=== PATIENT | female | born 1940 | race Caucasian/White ===

== ENCOUNTER 2022-02-17 14:08 | Emergency (ER) | payer MEDICARE, OTHER, SELFPAY ==
[2022-02-17] VITALS (8 sets, daily range): BP systolic 154–179; BP diastolic 69–123; PULSE 65–67; RESP 16; O2SAT 96–98; BMI 29.9
--- NOTE | 2022-02-17 14:52 | DI.CT.S_ITS ---
PROCEDURE: CT HEAD/BRAIN WO CON INDICATIONS: prior bleed TECHNIQUE: Noncontrast 4.5 mm thick angled axial sections acquired from the foramen magnum to the vertex, with coronal and sagittal reformats. For radiation dose reduction, the following was used: automated exposure control, adjustment of mA and/or kV according to patient size. COMPARISON: None. FINDINGS: Image quality: Excellent. CSF spaces: Basal cisterns are patent. No extra-axial fluid collections. Ventricles are normal in size and shape. Brain: No midline shift. No intracranial mass is identified. There is subtle density adjacent to the left anterior horn, (2/14). No area of hypodensity in a large vascular distribution to suggest acute infarction. Periventricular hypodensity consistent with chronic microvascular ischemic change. Age-related parenchymal loss. Skull and face: Calvarium and visualized facial bones are intact, without suspicious lesions. Left globe implant. Sinuses: Visualized sinuses and mastoids are clear. IMPRESSION: 1. Subtle density adjacent to the anterior horn of the left lateral ventricle. This could be a site of prior hemorrhage, asymmetric periventricular hypodensity related to chronic microvascular ischemic disease, or artifact. The level of density speaks against acute hemorrhage. Comparison with prior head CT imaging would be helpful when available. 2. Chronic microvascular ischemic disease. Dictated by: Robe Simon M.D. on 02/17/2022 at 15:38 Approved by: Robe Simon M.D. on 02/17/2022 at 15:44
[2022-02-17 15:15] LABS: Add Manual Diff / Slide Review NO; Basophils Absolute Auto 0 /uL (0-100); Basophils Percent Auto 1.2 % (0-2); Eosinophils Absolute Auto 0 /uL (0-450); Eosinophils Percent Auto 0.6 % (2-4); Hematocrit 26.9 % (36-46); Hemoglobin 9.3 g/dL (12.0-16.0); Lymphocytes Absolute Auto 1300 /uL (1100-4500); Lymphocytes Percent Auto 35.1 % (25-40); Mean Corpuscular HGB Conc 34.5 % (30-36); Mean Corpuscular Hemoglobin 33.4 PG (26-34); Mean Corpuscular Volume 96.9 fL (80-100); Monocytes Absolute Auto 900 /uL (0-900); Monocytes Percent Auto 23.6 % (3-14); Neutrophils Absolute Auto 1500 /uL (1500-7000); Neutrophils Percent Auto 39.5 % (50-75); Platelet Count 160 X10^3/uL (150-400); Red Blood Cell Count 2.78 X10^6/uL (4.0-5.2); Red Cell Distribution Width 16.2 % (11.6-14.8); White Blood Cell Count 3.7 X10^3/uL (4.5-11.0)
[2022-02-17 15:38] LABS: Alanine Aminotransferase 61 IU/L (<35); Albumin Globulin Ratio 1.1 (1.0-2.8); Alkaline Phosphatase 206 U/L (38-126); Aspartate Aminotransferase 46 IU/L (14-36); BUN Creatinine Ratio 17.8 (6-22); Bilirubin Total 0.5 mg/dL (0.2-1.3); Blood Urea Nitrogen 21 mg/dL (7-17); Calcium 9.7 mg/dL (8.4-10.2); Carbon Dioxide 26 mmol/L (22-32); Chloride 100 mmol/L (98-107); Creatine Kinase 38 U/L (30-135); Estimated Glomerular Filt Rate 46 mL/min (>60); Globulin 3.5 g/dL (1.7-4.1); Glucose 97 mg/dL (80-110); HEMOLYSIS < 15 (0-50); Lactate (Lactic Acid) 0.9 mmol/L (0.7-2.1); Potassium 4.2 mmol/L (3.4-5.1); Sodium 135 mmol/L (137-145); Total Protein 7.5 g/dL (6.3-8.2)
[2022-02-17 15:49] LABS: Troponin I < 0.012 ng/mL (0.01-0.034)
--- NOTE | 2022-02-17 17:35 | ED.RECABL ---
HPI - Recheck/Abnormal Lab/Rx General Chief Complaint: Recheck/Abnormal Lab/Rx Stated Complaint: unstable,low platelet count Time Seen by Provider: 02/17/22 14:26 Source: patient Mode of arrival: Ambulatory History of Present Illness HPI narrative: Patient is an 81-year-old female currently being treated for lung cancer she was previously getting chemotherapy however patient and son report that she became quite anemic and that her platelets dropped she unfortunately fell and hit her head and had a small intracranial hemorrhage. At that time she stayed in the hospital for about 1 week in [place] she was released and the son brought her here. They have been trying to get her into rehab but unfortunately rehab facilities are not accepting her because of her cancer diagnosis. Son states that she has fallen a few times this week. She fell yesterday in the shower and today she felt her legs get weak and he caught her. She is not really fallen or hit her head recently. She has not had any fever chills. No significant shortness of breath. Sinus trying to get her set up with outpatient physicians here locally. Her chemotherapy has been held due to her low blood counts Related Data Allergies Allergy/AdvReac Type Severity Reaction Status Date / Time No Known Drug Allergies Allergy Verified 02/17/22 14:22 Review of Systems Review of Systems Narrative: GENERAL: + frequent falls, fatigue Denies chills, fatigue, malaise, fever, sweats, travel HEENT: Denies sinus pain, ear pain, sore throat, difficulty swallowing, neck pain RESPIRATORY: Denies dyspnea, cough, wheezing, hemoptysis, sputum. CARDIOVASCULAR: Denies chest pain, palpitations, orthopnea, edema GASTROINTESTINAL: Denies nausea, vomiting, abdominal pain, diarrhea, constipation, melena. : Denies dysuria, frequency, incontinence, hematuria, urinary retention, flank pain. MUSCULOSKELETAL: Denies weakness, joint pain, or bony pain SKIN: No rash, no erythema, no pruritus NEUROLOGIC: Denies weakness, dizziness, headache, numbness, change in speech, confusion PSYCHIATRIC: No concerning psychosocial issues. 12 point review of systems is negative except for those stated above and HPI Patient History Social History Smoking Status: Former smoker Smoking Status: Former smoker Substance Use Type: does not use Exam Initial Vital Signs Initial Vital Signs: Vital Signs Pulse Rate 67 02/17/22 14:16 Respiratory Rate 16 02/17/22 14:16 Blood Pressure 179/123 H 02/17/22 14:16 Pulse Oximetry 98 02/17/22 14:16 Oxygen Delivery Method 02/17/22 14:16 GENERAL: Alert 81-year-old female appears slightly pale HEENT: Head atraumatic,EOMI, pupils reactive, face symmetric, moist mucous membranes CARDIOVASCULAR: Regular rate and rhythm without murmurs, rubs or gallops. RESPIRATORY: Breath sounds equal bilaterally, no wheezes rales or rhonchi. ABDOMEN: Soft, nontender. Normoactive bowel sounds all 4 quadrants. No guarding or rebound. EXTREMITIES: Normal range of motion, no clubbing or edema. Neurovascularly intact NEUROLOGICAL: Alert and oriented x4.Normal gait and speech. Cranial nerves II through XII grossly intact. Good [id number], good [id number], strength equal bilaterally, no dysarthria or aphasia, sensation in tact to soft touch bilaterally, no visual changes, no facial droop SKIN: Warm, dry, no laceration, no petechiae, no rashes or lesions. Course Orders Ordered: ED Orders 02/17/22 14:32 CBC Auto Diff [Complete Blood Count AUTO DIFF] Stat CMP [Comprehensive Metabolic Panel] Stat Lactate (Lactic Acid) Stat Procalcitonin Stat Troponin & CK Cardiac Panel Stat Type and Screen Stat 02/17/22 14:52 CT head/brain wo con Stat EKG-12 Lead Stat 02/17/22 17:44 Consult to [facility] - [employer] Developer Stat 02/17/22 18:10 Consult to Home Health Stat Vital Signs Vital signs: Vital Signs - 8 hr 02/17/22 14:16 Pulse Rate 67 Respiratory Rate 16 Blood Pressure 179/123 H Pulse Oximetry 98 Oxygen Delivery Method Room Air MDM - Recheck/Abnormal Lab/Rx Lab Data Result diagrams: 02/17/22 14:32 02/17/22 14:32 Labs: Lab Results 02/17/22 02/17/22 02/17/22 Range/Units 14:32 14:32 14:32 WBC 3.7 L (4.5-11.0) X10^3/uL RBC 2.78 L (4.0-5.2) X10^6/uL Hgb 9.3 L (12.0-16.0) g/dL Hct 26.9 L (36-46) % MCV 96.9 (80-100) fL MCH 33.4 (26-34) PG MCHC 34.5 (30-36) % RDW 16.2 H (11.6-14.8) % Plt Count 160 (150-400) X10^3/uL Neut % (Auto) 39.5 L (50-75) % Lymph % (Auto) 35.1 (25-40) % [place] % (Auto) 23.6 H (3-14) % Eos % (Auto) 0.6 L (2-4) % Baso % (Auto) 1.2 (0-2) % Neut # (Auto) 1500 (4227-4932) /uL Lymph # (Auto) 1300 (1579-1423) /uL [place] # (Auto) 900 (0-900) /uL Eos # (Auto) 0 (0-450) /uL Baso # (Auto) 0 (0-100) /uL Sodium 135 L (137-145) mmol/L Potassium 4.2 (3.4-5.1) mmol/L Chloride 100 (98-107) mmol/L Carbon Dioxide 26 (22-32) mmol/L BUN 21 H (7-17) mg/dL Creatinine 1.18 H (0.52-1.04) mg/dL Estimated GFR 46 L (>60) mL/min BUN/Creatinine Ratio 17.8 (6-22) Glucose 97 (80-110) mg/dL Lactate 0.9 (0.7-2.1) mmol/L Calcium 9.7 (8.4-10.2) mg/dL Total Bilirubin 0.5 (0.2-1.3) mg/dL AST 46 H (14-36) IU/L ALT 61 H (<35) IU/L Alkaline Phosphatase 206 H (38-126) U/L Total Creatine Kinase 38 (30-135) U/L CK-MB (CK-2) TNP CK-MB (CK-2) Rel Index TNP Troponin I < 0.012 (0.01-0.034) ng/mL Total Protein 7.5 (6.3-8.2) g/dL Albumin 4.0 (3.5-5.0) g/dL Globulin 3.5 (1.7-4.1) g/dL Albumin/Globulin Ratio 1.1 (1.0-2.8) Procalcitonin (<0.5) ng/mL Blood Type Antibody Screen 02/17/22 02/17/22 Range/Units 14:32 14:32 WBC (4.5-11.0) X10^3/uL RBC (4.0-5.2) X10^6/uL Hgb (12.0-16.0) g/dL Hct (36-46) % MCV (80-100) fL MCH (26-34) PG MCHC (30-36) % RDW (11.6-14.8) % Plt Count (150-400) X10^3/uL Neut % (Auto) (50-75) % Lymph % (Auto) (25-40) % [place] % (Auto) (3-14) % Eos % (Auto) (2-4) % Baso % (Auto) (0-2) % Neut # (Auto) (4761-1107) /uL Lymph # (Auto) (5482-9815) /uL [place] # (Auto) (0-900) /uL Eos # (Auto) (0-450) /uL Baso # (Auto) (0-100) /uL Sodium (137-145) mmol/L Potassium (3.4-5.1) mmol/L Chloride (98-107) mmol/L Carbon Dioxide (22-32) mmol/L BUN (7-17) mg/dL Creatinine (0.52-1.04) mg/dL Estimated GFR (>60) mL/min BUN/Creatinine Ratio (6-22) Glucose (80-110) mg/dL Lactate (0.7-2.1) mmol/L Calcium (8.4-10.2) mg/dL Total Bilirubin (0.2-1.3) mg/dL AST (14-36) IU/L ALT (<35) IU/L Alkaline Phosphatase (38-126) U/L Total Creatine Kinase (30-135) U/L CK-MB (CK-2) CK-MB (CK-2) Rel Index Troponin I (0.01-0.034) ng/mL Total Protein (6.3-8.2) g/dL Albumin (3.5-5.0) g/dL Globulin (1.7-4.1) g/dL Albumin/Globulin Ratio (1.0-2.8) Procalcitonin 0.10 (<0.5) ng/mL Blood Type A Positive Antibody Screen Negative Imaging Data CT scan - head: Radiologist's Impression: [place], [place] [address] CT Scan Report Signed Patient: Ashanti Ontiveros MR#: [id number] : 1940 Acct:[id number] Age/Sex: 81 / F Date of Service: 02/17/22 Loc: ED Accession Number: [id number] ?? Procedure: CT head/brain wo con Ordering Provider: Radha Peacock D.O. PROCEDURE:? CT HEAD/BRAIN WO CON ? INDICATIONS:? prior bleed ? TECHNIQUE:? Noncontrast 4.5 mm thick angled axial sections acquired from the foramen magnum to the vertex, with coronal and sagittal reformats.? For radiation dose reduction, the following was used:? automated exposure control, adjustment of mA and/or kV according to patient size.? ? COMPARISON:? None. ? FINDINGS:? Image quality:? Excellent.? ? CSF spaces:? Basal cisterns are patent.? No extra-axial fluid collections.? Ventricles are normal in size and shape.? ? Brain:? No midline shift.? No intracranial mass is identified.? There is subtle density adjacent to the left anterior horn, (2/14).? No area of hypodensity in a large vascular distribution to suggest acute infarction. Periventricular hypodensity consistent with chronic microvascular ischemic change. Age-related parenchymal loss. ? Skull and face:? Calvarium and visualized facial bones are intact, without suspicious lesions.? Left globe implant.? ? Sinuses:? Visualized sinuses and mastoids are clear.? ? IMPRESSION:? 1. Subtle density adjacent to the anterior horn of the left lateral ventricle.? This could be a site of prior hemorrhage, asymmetric periventricular hypodensity related to chronic microvascular ischemic disease, or artifact.? The level of density speaks against acute hemorrhage.? Comparison with prior head CT imaging would be helpful when available. ? ? 2. Chronic microvascular ischemic disease. ECG Data Interpretation: Sinus rhythm rate 64 AL interval 180 QRS [address] changes no T-wave inversion no priors to compare MDM Narrative Medical decision making narrative: Patient is having more frequent falls she is quite fatigued with chemotherapy. She is on a chemotherapy break currently. Sounds is alert trying to establish care locally but have not yet done so. Also trying to establish possible sniff her rehab placement but unsuccessful at this time. Patient's blood work is reassuring she has mild anemia, mild leukopenia platelets are 160. She does have minor elevation of creatinine of 1.1 unknown what her baseline values are. Liver enzymes are also noted to be minimally elevated as well she has no abdominal pain. Social work has been in to see to evaluate patient he has been set up with home health care. Discharge Plan Departure Patient Disposition: Home Clinical Impression: Falls frequently Instructions: How to Prevent Falls Activity Restrictions/Additional Instructions: *You have been diagnosed with frequent falls *What to do: Home physical therapy has been ordered. It should start in the next 1-2 weeks. Use walker all the time. Liver enzymes and kidney function are noted to be mildly elevated. This needs to be monitored. Have PCP recheck blood work. *Continue to take medications as directed *Follow up with your primary care provider in 2-3 days or call [phone] *Return to ER if you should have increasing falls, confusion, persistent vomiting, weakness or any new, worsening or concerning symptoms
--- NOTE | 2022-02-17 18:31 | CM.SWNOTE ---
DIE INSPECTOR/DCP Note Patient is 81 y/o female who presents to ED due to concern for weakness, recent GLFs and low platelet count. Patient has hx of lung cancer and was receiving chemo but it was recommended that patient pause tx until her platelet count increases. Patient has Medicare and [employer] insurance. Patient has new PCP appt with Dr. Miguel Bunch in March 2022. DIE INSPECTOR enters room to meet with patient, present in room is patient's son. Patient presents as A/Ox3 Patient currently resides with son but will be moving to [facility] in independent living on 02/23/22. Patient has 4WW walker with seat but has been experiencing GLFs recently. DIE INSPECTOR discusses HH with patient and son and provides list of HH options and they deny preference. DIE INSPECTOR discusses HH services and it is the opinion of patient and son that patient is in need of PT. DIE INSPECTOR calls [facility] and it is reported that they can start serving patient when she moves into [facility] to support her in her new environment. DIE INSPECTOR to fax f2f, clinicals, and order for HH to [facility]. Plan: Patient to d/c to home with son, move to [facility] on 02/23/22 and [facility] to f/u with patient to start PT services. DARREN Martel
== END 2022-02-17 18:47 | disposition home or self-care (01) ==
PROVIDERS: Emergency Provider Emergency Medicine
DX: R29.6 Repeated falls (principal); D64.9 Anemia, unspecified; R79.89 Other specified abnormal findings of blood chemistry; R07.9 Chest pain, unspecified; C34.90 Malignant neoplasm of unspecified part of unspecified bronchus or lung
CPT/HCPCS: 36415; 70450; 80053; 82550; 83605; 84145; 84484; 85025; 86850; 86900; 86901; 93005; 93010; 99284

== ENCOUNTER 2022-04-10 14:06 | Emergency (ER) | payer MEDICARE, OTHER, SELFPAY ==
[2022-04-10] VITALS (21 sets, daily range): BP systolic 128–154; BP diastolic 60–75; PULSE 62–79; RESP 17–27; TEMP 36.6; O2SAT 92–98; BMI 24.1
--- NOTE | 2022-04-10 14:16 | DI.CT.S_ITS ---
PROCEDURE: CT HEAD/BRAIN WO CON INDICATIONS: Fall, Hit Head TECHNIQUE: Noncontrast 4.5 mm thick angled axial sections acquired from the foramen magnum to the vertex, with coronal and sagittal reformats. For radiation dose reduction, the following was used: automated exposure control, adjustment of mA and/or kV according to patient size. COMPARISON: [facility], CT, CT HEAD/BRAIN WO CON, 02/17/2022, 14:57. FINDINGS: Image quality: Excellent. CSF spaces: Basal cisterns are patent. No extra-axial fluid collections. There is a new 12 mm diameter ovoid focus protruding into the frontal horn of the left lateral ventricle arising from the left basal ganglia. The ventricles are otherwise symmetric in size and shape. Brain: There is new moderate ill-defined low density within the bilateral cerebral hemispheres. Increased p. There are multiple rounded lesions within the bilateral cerebral and cerebellar hemispheres, several of which demonstrate high density, consistent with hemorrhagic masses. Largest of these is within the left parietal lobe, measuring 16 mm diameter. There is cerebral volume loss for age, with resultant ventricular and sulcal prominence. There are periventricular and deep white matter chronic small vessel ischemic changes. There is intracranial internal carotid artery atherosclerosis. Skull and face: Calvarium and visualized facial bones appear intact, without suspicious lesions. Sinuses: Visualized sinuses and mastoids are clear. IMPRESSION: 1. 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 2. No midline shift. Dictated by: Sylvia Raygoza M.D. on 04/10/2022 at 14:42 Approved by: Sylvia Raygoza M.D. on 04/10/2022 at 14:45
--- NOTE | 2022-04-10 14:18 | DI.RAD.S_ITS ---
PROCEDURE: XR CHEST 1V INDICATIONS: Possible stroke TECHNIQUE: One view of the chest was acquired. COMPARISON: None. FINDINGS: Surgical changes and devices: None. Lungs and pleura: Lungs are clear. No pleural effusions or pneumothorax. Mediastinum: Mediastinal contours appear normal. Heart size is enlarged.. Bones and chest wall: No suspicious bony lesions. Overlying soft tissues appear unremarkable. IMPRESSION: Cardiomegaly. No acute cardiopulmonary abnormality. Dictated by: Horace Rouse M.D. on 04/10/2022 at 14:40 Approved by: Horace Rouse M.D. on 04/10/2022 at 14:41
[2022-04-10 14:28] LABS: Add Manual Diff / Slide Review NO; Basophils Absolute Auto 0 /uL (0-100); Basophils Percent Auto 0.9 % (0-2); Eosinophils Absolute Auto 100 /uL (0-450); Eosinophils Percent Auto 2.2 % (2-4); Hemoglobin 10.4 g/dL (12.0-16.0); Lymphocytes Absolute Auto 1200 /uL (1100-4500); Lymphocytes Percent Auto 20.9 % (25-40); Mean Corpuscular HGB Conc 34.7 % (30-36); Mean Corpuscular Hemoglobin 35.8 PG (26-34); Monocytes Absolute Auto 600 /uL (0-900); Monocytes Percent Auto 11.3 % (3-14); Neutrophils Absolute Auto 3700 /uL (1500-7000); Neutrophils Percent Auto 64.7 % (50-75); Platelet Count 169 X10^3/uL (150-400); Red Blood Cell Count 2.91 X10^6/uL (4.0-5.2); Red Cell Distribution Width 17.8 % (11.6-14.8); White Blood Cell Count 5.7 X10^3/uL (4.5-11.0)
[2022-04-10 14:30] LABS: INR 1.2 (0.9-1.3); Prothrombin Time 13.6 SECONDS (10.1-12.7)
[2022-04-10 14:33] LABS: PTT Partial Thromboplastin Tim 28 SECONDS (26-36)
[2022-04-10 14:41] LABS: Alanine Aminotransferase 44 IU/L (<35); Albumin 3.9 g/dL (3.5-5.0); Albumin Globulin Ratio 0.9 (1.0-2.8); Alkaline Phosphatase 362 U/L (38-126); Aspartate Aminotransferase 56 IU/L (14-36); BUN Creatinine Ratio 20.5 (6-22); Bilirubin Total 0.6 mg/dL (0.2-1.3); Blood Urea Nitrogen 41 mg/dL (7-17); Calcium 10.3 mg/dL (8.4-10.2); Carbon Dioxide 29 mmol/L (22-32); Chloride 104 mmol/L (98-107); Creatine Kinase 23 U/L (30-135); Estimated Glomerular Filt Rate 25 mL/min (>60); Globulin 4.2 g/dL (1.7-4.1); Glucose 112 mg/dL (80-110); HEMOLYSIS < 15 (0-50); Magnesium 1.6 mg/dL (1.6-2.3); Potassium 4.1 mmol/L (3.4-5.1); Sodium 138 mmol/L (137-145); Total Protein 8.1 g/dL (6.3-8.2)
--- NOTE | 2022-04-10 14:43 | ED_ITS ---
HPI - Fall <Hernan Booth MD - Last Filed: 04/17/22 07:44> General Chief Complaint: Fall Stated Complaint: GLF, resolved left side weakness Time Seen by Provider: 04/10/22 14:16 Source: patient and EMS Mode of arrival: EMS History of Present Illness HPI Narrative: This patient arrives from the [facility] having suffered a recent ground level fall. She is accompanied by her lfgmnthp-hr-aal. Oaxfjpdx-es-whi states that she is being treated for lung cancer and brain tumors as well. She sees Dr. Montague from Oncology. She has been having immunotherapy and commonly gets somewhat confused for 5 days after that but her last treatment was about 2 and half weeks ago. Over the past few days she has become increasingly confused and disoriented. The ilonzhqw-ws-rgy says that this is dramatically different than baseline. Today she was on her way to take her to a doctor's appointment but the [facility] says that she was listing to the left at the lunch room and needed to be taken back to her room in a wheelchair. While in her room she tried to get out of the wheelchair and fell to the ground and hit her head on the ground. Buidbzge-fg-rew says that she was normally ambulatory yesterday but confused. She had not noticed any left-sided weakness there. No recent illness such as vomiting or fever. The patient denies any urinary symptoms. Related Data Home Medications Medication Instructions Recorded Confirmed benzonatate 100 mg capsule 100 mg PO BID PRN Cough 04/13/22 04/13/22 ipratropium bromide 21 mcg (0.03 2 spray BID-TID PRN Shortness Of 04/13/22 04/13/22 %) nasal spray Breath losartan 100 1 tab PO DAILY 04/13/22 04/13/22 mg-hydrochlorothiazide 25 mg tablet mirtazapine 7.5 mg tablet 7.5 mg PO DAILY 04/13/22 04/13/22 montelukast 10 mg tablet 10 mg PO BEDTIME 04/13/22 04/13/22 olanzapine 5 mg tablet 5 mg PO BEDTIME 04/13/22 04/13/22 ondansetron 8 mg disintegrating 8 mg PO Q8H PRN Nausea 04/13/22 04/13/22 tablet simvastatin 20 mg tablet 20 mg PO DAILY 04/13/22 04/13/22 Allergies Allergy/AdvReac Type Severity Reaction Status Date / Time No Known Drug Allergies Allergy Verified 02/17/22 14:22 Review of Systems <Hernan Booth MD - Last Filed: 04/17/22 07:44> Review of Systems Narrative: Complete review of systems is difficult given this patient's lack of orientation. Patient History <Hernan Booth MD - Last Filed: 04/17/22 07:44> Social History Smoking Status: Former smoker Smoking Status: Former smoker alcohol intake frequency: 0-2 drinks per day Substance Use Type: does not use Exam <Hernan Booth MD - Last Filed: 04/17/22 07:44> Narrative Exam Narrative: GENERAL: Alert, cooperative and in no distress. HEAD: Atraumatic. Normocephalic. EYES: Sclera are clear without icterus. Extraocular movements are full. ENT: No rhinorrhea. Oropharynx is moist. Mouth exam is benign. NECK: Supple. Full range of motion. CARDIOVASCULAR: Normal rate and rhythm without murmur gallop or rub. RESPIRATORY: Clear to auscultation. Breath sounds equal bilaterally. No wheezes, rales, or rhonchi. GASTROINTESTINAL: Abdomen soft, non-tender, nondistended. EXTREMITIES: No edema, full range of motion. No obvious trauma. BACK: Normal inspection, no CVA tenderness. NEURO: See NIH stroke score below. She has profound right upper extremity tremor but daughter says this is not typical. SKIN: No rash or erythema of visible areas PSYCH: Normally oriented. Normal range of affect. Appropriate behavior Initial Vital Signs Initial Vital Signs: Vital Signs Temperature 97.9 F 04/10/22 14:10 Pulse Rate 71 04/10/22 14:10 Respiratory Rate 18 04/10/22 14:10 Blood Pressure 154/67 H 04/10/22 14:10 Pulse Oximetry 93 04/10/22 14:10 Oxygen Delivery Method 04/10/22 14:10 <Ronnie Payne DO - Last Filed: 04/12/22 03:38> Initial Vital Signs Initial Vital Signs: Vital Signs Temperature 97.9 F 04/10/22 14:10 Pulse Rate 71 04/10/22 14:10 Respiratory Rate 18 04/10/22 14:10 Blood Pressure 154/67 H 04/10/22 14:10 Pulse Oximetry 93 04/10/22 14:10 Oxygen Delivery Method 04/10/22 14:10 <Pavithra Aguillon DO - Last Filed: 04/11/22 20:39> Initial Vital Signs Initial Vital Signs: Vital Signs Temperature 97.9 F 04/10/22 14:10 Pulse Rate 71 04/10/22 14:10 Respiratory Rate 18 04/10/22 14:10 Blood Pressure 154/67 H 04/10/22 14:10 Pulse Oximetry 93 04/10/22 14:10 Oxygen Delivery Method 04/10/22 14:10 <Radha Peacock DO - Last Filed: 04/25/22 07:33> Initial Vital Signs Initial Vital Signs: Vital Signs Temperature 97.9 F 04/10/22 14:10 Pulse Rate 71 04/10/22 14:10 Respiratory Rate 18 04/10/22 14:10 Blood Pressure 154/67 H 04/10/22 14:10 Pulse Oximetry 93 04/10/22 14:10 Oxygen Delivery Method 04/10/22 14:10 <Holden Acosta DO - Last Filed: 04/14/22 11:24> Initial Vital Signs Initial Vital Signs: Vital Signs Temperature 97.9 F 04/10/22 14:10 Pulse Rate 71 04/10/22 14:10 Respiratory Rate 18 04/10/22 14:10 Blood Pressure 154/67 H 04/10/22 14:10 Pulse Oximetry 93 04/10/22 14:10 Oxygen Delivery Method 04/10/22 14:10 Scores <Hernan Booth MD - Last Filed: 04/17/22 07:44> NIH Stroke Scale Level of Conciousness: Alert, keenly responsive Ask month/age: Answers both questions correctly. Open/close eyes, close hand: Performs both tasks correctly Best gaze horizontal: Normal Visual de [place] rosa: Partial hemianopia Facial palsy: Normal symetrical movement Left arm drift: No drift for full 10 sec Right arm drift: No drift for full 10 sec Left leg drift: Drifts down, not to bed Right leg drift: No drift for full 5 sec Limb ataxia: Present in one limb Sensory on face/arms/legs: Normal, no sensory loss Best language: Mild to moderate, slurs some words Dysarthria: Mild to mod,some slurring Extinction or inattention: Visual, tactile, auditory, spacial or personal inattention to stimuli Total NIH Stroke scale score: 6 <Ronnie Elmer, DO - Last Filed: 04/12/22 03:38> NIH Stroke Scale Total NIH Stroke scale score: 6 <Pavithra Rodríguez Bebetoacosta, DO - Last Filed: 04/11/22 20:39> NIH Stroke Scale Total NIH Stroke scale score: 6 <Radha Peacock, DO - Last Filed: 04/25/22 07:33> NIH Stroke Scale Total NIH Stroke scale score: 6 <Holden Acosta, DO - Last Filed: 04/14/22 11:24> NIH Stroke Scale Total NIH Stroke scale score: 6 Course <Hernan Booth MD - Last Filed: 04/17/22 07:44> Course Course Narrative: Recent confusion and listing to the left at lunch. Recent head injury. Known brain tumor. Will start with CT brain and metabolic workup for now. Last known well was yesterday so not a tPA candidate for now. Orders Ordered: Discontinued Medications Atorvastatin Calcium (Atorvastatin 20 Mg Tablet) 10 mg PO NOW [facility] Last Admin: 04/14/22 09:22 Dose: 10 mg Documented By: NYDIA Dexamethasone (Dexamethasone 4 Mg Tablet) 4 mg PO TID [facility] Last Admin: 04/12/22 21:03 Dose: 4 mg Documented By: Admin: 04/12/22 14:58 Dose: 4 mg Documented By: Admin: 04/12/22 08:44 Dose: 4 mg Documented By: Admin: 04/11/22 20:41 Dose: 4 mg Documented By: DKHolly Admin: 04/11/22 15:02 Dose: 4 mg Documented By: Admin: 04/11/22 08:37 Dose: 4 mg Documented By: Admin: 04/10/22 23:06 Dose: 4 mg Documented By: Admin: 04/10/22 18:09 Dose: 4 mg Documented By: SB Dexamethasone (Dexamethasone 4 Mg/Ml Vial) 4 mg IV Q8H [facility] Last Admin: 04/14/22 09:22 Dose: 4 mg Documented By: Admin: 04/14/22 00:06 Dose: 4 mg Documented By: Admin: 04/13/22 17:05 Dose: 4 mg Documented By: Admin: 04/13/22 09:25 Dose: 4 mg Documented By: JAC Hydrochlorothiazide (Hydrochlorothiazide 25 Mg Tablet) 25 mg PO NOW [facility] Last Admin: 04/14/22 09:21 Dose: 25 mg Documented By: NYDIA Losartan Potassium (Losartan 50 Mg Tablet) 100 mg PO NOW ONE Stop: 04/13/22 23:11 Last Admin: 04/13/22 23:33 Dose: 100 mg Documented By: PRINCESS Losartan Potassium (Losartan 50 Mg Tablet) 100 mg PO NOW [facility] Last Admin: 04/14/22 09:20 Dose: 100 mg Documented By: NYDIA Olanzapine (Olanzapine 2.5 Mg Tablet) 5 mg PO BEDTIME [facility] Last Admin: 04/13/22 23:48 Dose: Not Given Documented By: NICKI Consultations Consultation #1: I discussed the case in detail with Dr. Otto who felt that the worsening brain metastases was a particularly dire sign of non response to therapy and that likely she should move to palliative care. He felt that a high-dose steroid for 24 hours might be reasonable to see if she will recover some function in anticipation of palliative whole-brain radiation. I also discussed the case with Dr. Dawson from Radiation Oncology who agreed with the above recommenda tion. Because radiation is not available at [facility] we will try to transfer the patient to [facility] where she could receive whole- brain radiation if the steroid is insufficient to manage her symptoms functionally. Vital Signs Vital signs: Vital Signs - 8 hr 04/14/22 03:30 04/14/22 04:00 04/14/22 04:30 Pulse Rate 52 L 51 L 56 L Respiratory Rate 20 14 16 Blood Pressure Pulse Oximetry 94 96 96 04/14/22 09:20 04/14/22 05:00 04/14/22 06:00 Pulse Rate 58 L 57 L 47 L Respiratory Rate 19 14 Blood Pressure 182/84 H Pulse Oximetry 95 93 04/14/22 07:00 04/14/22 08:00 04/14/22 09:00 Pulse Rate 46 L 59 L 52 L Respiratory Rate 17 18 16 Blood Pressure Pulse Oximetry 94 95 93 04/14/22 09:36 04/14/22 09:36 04/14/22 10:00 Pulse Rate 58 L 50 L Respiratory Rate 17 14 Blood Pressure 180/82 H Pulse Oximetry 93 97 <Ronnie aPyne, DO - Last Filed: 04/12/22 03:38> Orders Ordered: Discontinued Medications Atorvastatin Calcium (Atorvastatin 20 Mg Tablet) 10 mg PO NOW [facility] Last Admin: 04/14/22 09:22 Dose: 10 mg Documented By: NYDIA Dexamethasone (Dexamethasone 4 Mg Tablet) 4 mg PO TID [facility] Last Admin: 04/12/22 21:03 Dose: 4 mg Documented By: Admin: 04/12/22 14:58 Dose: 4 mg Documented By: Admin: 04/12/22 08:44 Dose: 4 mg Documented By: Admin: 04/11/22 20:41 Dose: 4 mg Documented By: Admin: 04/11/22 15:02 Dose: 4 mg Documented By: Admin: 04/11/22 08:37 Dose: 4 mg Documented By: Admin: 04/10/22 23:06 Dose: 4 mg Documented By: Admin: 04/10/22 18:09 Dose: 4 mg Documented By: MARIA FERNANDA Dexamethasone (Dexamethasone 4 Mg/Ml Vial) 4 mg IV Q8H [facility] Last Admin: 04/14/22 09:22 Dose: 4 mg Documented By: Admin: 04/14/22 00:06 Dose: 4 mg Documented By: Admin: 04/13/22 17:05 Dose: 4 mg Documented By: Admin: 04/13/22 09:25 Dose: 4 mg Documented By: JAC Hydrochlorothiazide (Hydrochlorothiazide 25 Mg Tablet) 25 mg PO NOW [facility] Last Admin: 04/14/22 09:21 Dose: 25 mg Documented By: NYDIA Losartan Potassium (Losartan 50 Mg Tablet) 100 mg PO NOW ONE Stop: 04/13/22 23:11 Last Admin: 04/13/22 23:33 Dose: 100 mg Documented By: PRINCESS Losartan Potassium (Losartan 50 Mg Tablet) 100 mg PO NOW [facility] Last Admin: 04/14/22 09:20 Dose: 100 mg Documented By: NYDIA Olanzapine (Olanzapine 2.5 Mg Tablet) 5 mg PO BEDTIME [facility] Last Admin: 04/13/22 23:48 Dose: Not Given Documented By: NICKI Vital Signs Vital signs: Vital Signs - 8 hr 04/14/22 03:30 04/14/22 04:00 04/14/22 04:30 Pulse Rate 52 L 51 L 56 L Respiratory Rate 20 14 16 Blood Pressure Pulse Oximetry 94 96 96 04/14/22 09:20 04/14/22 05:00 04/14/22 06:00 Pulse Rate 58 L 57 L 47 L Respiratory Rate 19 14 Blood Pressure 182/84 H Pulse Oximetry 95 93 04/14/22 07:00 04/14/22 08:00 04/14/22 09:00 Pulse Rate 46 L 59 L 52 L Respiratory Rate 17 18 16 Blood Pressure Pulse Oximetry 94 95 93 04/14/22 09:36 04/14/22 09:36 04/14/22 10:00 Pulse Rate 58 L 50 L Respiratory Rate 17 14 Blood Pressure 180/82 H Pulse Oximetry 93 97 <Pavithra Aguillon, DO - Last Filed: 04/11/22 20:39> Orders Ordered: Discontinued Medications Atorvastatin Calcium (Atorvastatin 20 Mg Tablet) 10 mg PO NOW [facility] Last Admin: 04/14/22 09:22 Dose: 10 mg Documented By: NYDIA Dexamethasone (Dexamethasone 4 Mg Tablet) 4 mg PO TID [facility] Last Admin: 04/12/22 21:03 Dose: 4 mg Documented By: Admin: 04/12/22 14:58 Dose: 4 mg Documented By: Admin: 04/12/22 08:44 Dose: 4 mg Documented By: AMMacy Admin: 04/11/22 20:41 Dose: 4 mg Documented By: Admin: 04/11/22 15:02 Dose: 4 mg Documented By: Admin: 04/11/22 08:37 Dose: 4 mg Documented By: Admin: 04/10/22 23:06 Dose: 4 mg Documented By: Admin: 04/10/22 18:09 Dose: 4 mg Documented By: SB Dexamethasone (Dexamethasone 4 Mg/Ml Vial) 4 mg IV Q8H [facility] Last Admin: 04/14/22 09:22 Dose: 4 mg Documented By: Admin: 04/14/22 00:06 Dose: 4 mg Documented By: Admin: 04/13/22 17:05 Dose: 4 mg Documented By: Admin: 04/13/22 09:25 Dose: 4 mg Documented By: AMU Hydrochlorothiazide (Hydrochlorothiazide 25 Mg Tablet) 25 mg PO NOW [facility] Last Admin: 04/14/22 09:21 Dose: 25 mg Documented By: NYDIA Losartan Potassium (Losartan 50 Mg Tablet) 100 mg PO NOW ONE Stop: 04/13/22 23:11 Last Admin: 04/13/22 23:33 Dose: 100 mg Documented By: PRINCESS Losartan Potassium (Losartan 50 Mg Tablet) 100 mg PO NOW [facility] Last Admin: 04/14/22 09:20 Dose: 100 mg Documented By: NYDIA Olanzapine (Olanzapine 2.5 Mg Tablet) 5 mg PO BEDTIME [facility] Last Admin: 04/13/22 23:48 Dose: Not Given Documented By: NICKI Vital Signs Vital signs: Vital Signs - 8 hr 04/14/22 03:30 04/14/22 04:00 04/14/22 04:30 Pulse Rate 52 L 51 L 56 L Respiratory Rate 20 14 16 Blood Pressure Pulse Oximetry 94 96 96 04/14/22 09:20 04/14/22 05:00 04/14/22 06:00 Pulse Rate 58 L 57 L 47 L Respiratory Rate 19 14 Blood Pressure 182/84 H Pulse Oximetry 95 93 04/14/22 07:00 04/14/22 08:00 04/14/22 09:00 Pulse Rate 46 L 59 L 52 L Respiratory Rate 17 18 16 Blood Pressure Pulse Oximetry 94 95 93 04/14/22 09:36 04/14/22 09:36 04/14/22 10:00 Pulse Rate 58 L 50 L Respiratory Rate 17 14 Blood Pressure 180/82 H Pulse Oximetry 93 97 <Radha Peacock, DO - Last Filed: 04/25/22 07:33> Orders Ordered: Discontinued Medications Atorvastatin Calcium (Atorvastatin 20 Mg Tablet) 10 mg PO NOW [facility] Last Admin: 04/14/22 09:22 Dose: 10 mg Documented By: NYDIA Dexamethasone (Dexamethasone 4 Mg Tablet) 4 mg PO TID [facility] Last Admin: 04/12/22 21:03 Dose: 4 mg Documented By: Admin: 04/12/22 14:58 Dose: 4 mg Documented By: Admin: 04/12/22 08:44 Dose: 4 mg Documented By: Admin: 04/11/22 20:41 Dose: 4 mg Documented By: Admin: 04/11/22 15:02 Dose: 4 mg Documented By: FLGal Admin: 04/11/22 08:37 Dose: 4 mg Documented By: Admin: 04/10/22 23:06 Dose: 4 mg Documented By: Admin: 04/10/22 18:09 Dose: 4 mg Documented By: MARIA FERNANDA Dexamethasone (Dexamethasone 4 Mg/Ml Vial) 4 mg IV Q8H [facility] Last Admin: 04/14/22 09:22 Dose: 4 mg Documented By: Admin: 04/14/22 00:06 Dose: 4 mg Documented By: Admin: 04/13/22 17:05 Dose: 4 mg Documented By: Admin: 04/13/22 09:25 Dose: 4 mg Documented By: JAC Hydrochlorothiazide (Hydrochlorothiazide 25 Mg Tablet) 25 mg PO NOW [facility] Last Admin: 04/14/22 09:21 Dose: 25 mg Documented By: NYDIA Losartan Potassium (Losartan 50 Mg Tablet) 100 mg PO NOW ONE Stop: 04/13/22 23:11 Last Admin: 04/13/22 23:33 Dose: 100 mg Documented By: PRINCESS Losartan Potassium (Losartan 50 Mg Tablet) 100 mg PO NOW [facility] Last Admin: 04/14/22 09:20 Dose: 100 mg Documented By: NYDIA Olanzapine (Olanzapine 2.5 Mg Tablet) 5 mg PO BEDTIME [facility] Last Admin: 04/13/22 23:48 Dose: Not Given Documented By: NICKI Vital Signs Vital signs: Vital Signs - 8 hr 04/14/22 03:30 04/14/22 04:00 04/14/22 04:30 Pulse Rate 52 L 51 L 56 L Respiratory Rate 20 14 16 Blood Pressure Pulse Oximetry 94 96 96 04/14/22 09:20 04/14/22 05:00 04/14/22 06:00 Pulse Rate 58 L 57 L 47 L Respiratory Rate 19 14 Blood Pressure 182/84 H Pulse Oximetry 95 93 04/14/22 07:00 04/14/22 08:00 04/14/22 09:00 Pulse Rate 46 L 59 L 52 L Respiratory Rate 17 18 16 Blood Pressure Pulse Oximetry 94 95 93 04/14/22 09:36 04/14/22 09:36 04/14/22 10:00 Pulse Rate 58 L 50 L Respiratory Rate 17 14 Blood Pressure 180/82 H Pulse Oximetry 93 97 <Holden Acosta DO - Last Filed: 04/14/22 11:24> Orders Ordered: Discontinued Medications Atorvastatin Calcium (Atorvastatin 20 Mg Tablet) 10 mg PO NOW [facility] Last Admin: 04/14/22 09:22 Dose: 10 mg Documented By: NYDIA Dexamethasone (Dexamethasone 4 Mg Tablet) 4 mg PO TID [facility] Last Admin: 04/12/22 21:03 Dose: 4 mg Documented By: Admin: 04/12/22 14:58 Dose: 4 mg Documented By: Admin: 04/12/22 08:44 Dose: 4 mg Documented By: Admin: 04/11/22 20:41 Dose: 4 mg Documented By: Admin: 04/11/22 15:02 Dose: 4 mg Documented By: FLGal Admin: 04/11/22 08:37 Dose: 4 mg Documented By: Admin: 04/10/22 23:06 Dose: 4 mg Documented By: Admin: 04/10/22 18:09 Dose: 4 mg Documented By: MARIA FERNANDA Dexamethasone (Dexamethasone 4 Mg/Ml Vial) 4 mg IV Q8H [facility] Last Admin: 04/14/22 09:22 Dose: 4 mg Documented By: Admin: 04/14/22 00:06 Dose: 4 mg Documented By: Admin: 04/13/22 17:05 Dose: 4 mg Documented By: Admin: 04/13/22 09:25 Dose: 4 mg Documented By: JAC Hydrochlorothiazide (Hydrochlorothiazide 25 Mg Tablet) 25 mg PO NOW [facility] Last Admin: 04/14/22 09:21 Dose: 25 mg Documented By: NYDIA Losartan Potassium (Losartan 50 Mg Tablet) 100 mg PO NOW ONE Stop: 04/13/22 23:11 Last Admin: 04/13/22 23:33 Dose: 100 mg Documented By: PRINCESS Losartan Potassium (Losartan 50 Mg Tablet) 100 mg PO NOW [facility] Last Admin: 04/14/22 09:20 Dose: 100 mg Documented By: NYDIA Olanzapine (Olanzapine 2.5 Mg Tablet) 5 mg PO BEDTIME [facility] Last Admin: 04/13/22 23:48 Dose: Not Given Documented By: NICKI Vital Signs Vital signs: Vital Signs - 8 hr 04/14/22 03:30 04/14/22 04:00 04/14/22 04:30 Pulse Rate 52 L 51 L 56 L Respiratory Rate 20 14 16 Blood Pressure Pulse Oximetry 94 96 96 04/14/22 09:20 04/14/22 05:00 04/14/22 06:00 Pulse Rate 58 L 57 L 47 L Respiratory Rate 19 14 Blood Pressure 182/84 H Pulse Oximetry 95 93 04/14/22 07:00 04/14/22 08:00 04/14/22 09:00 Pulse Rate 46 L 59 L 52 L Respiratory Rate 17 18 16 Blood Pressure Pulse Oximetry 94 95 93 04/14/22 09:36 04/14/22 09:36 04/14/22 10:00 Pulse Rate 58 L 50 L Respiratory Rate 17 14 Blood Pressure 180/82 H Pulse Oximetry 93 97 MDM - Fall <Hernan Booth MD - Last Filed: 04/17/22 07:44> Lab Data Result diagrams: 04/12/22 13:33 04/12/22 13:33 Labs: Lab Results 04/10/22 04/10/22 04/10/22 Range/Units 14:00 14:00 14:00 WBC 5.7 (4.5-11.0) X10^3/uL RBC 2.91 L (4.0-5.2) X10^6/uL Hgb 10.4 L (12.0-16.0) g/dL Hct 30.0 L (36-46) % MCV 103.0 H (80-100) fL MCH 35.8 H (26-34) PG MCHC 34.7 (30-36) % RDW 17.8 H (11.6-14.8) % Plt Count 169 (150-400) X10^3/uL Neut % (Auto) 64.7 (50-75) % Lymph % (Auto) 20.9 L (25-40) % [place] % (Auto) 11.3 (3-14) % Eos % (Auto) 2.2 (2-4) % Baso % (Auto) 0.9 (0-2) % Neut # (Auto) 3700 (1732-8858) /uL Lymph # (Auto) 1200 (1254-7890) /uL [place] # (Auto) 600 (0-900) /uL Eos # (Auto) 100 (0-450) /uL Baso # (Auto) 0 (0-100) /uL PT 13.6 H (10.1-12.7) SECONDS INR 1.2 (0.9-1.3) APTT 28 (26-36) SECONDS Sodium 138 (137-145) mmol/L Potassium 4.1 (3.4-5.1) mmol/L Chloride 104 (98-107) mmol/L Carbon Dioxide 29 (22-32) mmol/L BUN 41 H (7-17) mg/dL Creatinine 2.00 H (0.52-1.04) mg/dL Estimated GFR 25 L (>60) mL/min BUN/Creatinine Ratio 20.5 (6-22) Glucose 112 H (80-110) mg/dL Calcium 10.3 H (8.4-10.2) mg/dL Magnesium 1.6 (1.6-2.3) mg/dL Total Bilirubin 0.6 (0.2-1.3) mg/dL AST 56 H (14-36) IU/L ALT 44 H (<35) IU/L Alkaline Phosphatase 362 H (38-126) U/L Total Creatine Kinase 23 L (30-135) U/L CK-MB (CK-2) TNP CK-MB (CK-2) Rel Index TNP Troponin I < 0.012 (0.01-0.034) ng/mL Total Protein 8.1 (6.3-8.2) g/dL Albumin 3.9 (3.5-5.0) g/dL Globulin 4.2 H (1.7-4.1) g/dL Albumin/Globulin Ratio 0.9 L (1.0-2.8) Urine RBC (0-5/HPF) Urine WBC (0-5/HPF) Ur Squamous Epith Cells (0-5/HPF) Urine Bacteria (None) Ur Culture Indicated? U Opiates 300ng/mL cut (Negative) Ur Oxycodone Screen (Negative) Urine Methadone Screen (Negative) Ur Barbiturates Screen (Negative) U Tricyclic Antidepress (Negative) Ur Phencyclidine Scrn (Negative) Ur Amphetamines Screen (Negative) U Methamphetamines Scrn (Negative) Ur MDMA Scrn (Ecstasy) (Negative) U Benzodiazepines Scrn (Negative) Urine Cocaine Screen (Negative) U Marijuana (THC) Screen SARS-CoV-2 (PCR) (Negative) 04/10/22 04/10/22 04/10/22 Range/Units 16:43 16:43 16:47 WBC (4.5-11.0) X10^3/uL RBC (4.0-5.2) X10^6/uL Hgb (12.0-16.0) g/dL Hct (36-46) % MCV (80-100) fL MCH (26-34) PG MCHC (30-36) % RDW (11.6-14.8) % Plt Count (150-400) X10^3/uL Neut % (Auto) (50-75) % Lymph % (Auto) (25-40) % [place] % (Auto) (3-14) % Eos % (Auto) (2-4) % Baso % (Auto) (0-2) % Neut # (Auto) (1404-1230) /uL Lymph # (Auto) (7561-2617) /uL [place] # (Auto) (0-900) /uL Eos # (Auto) (0-450) /uL Baso # (Auto) (0-100) /uL PT (10.1-12.7) SECONDS INR (0.9-1.3) APTT (26-36) SECONDS Sodium (137-145) mmol/L Potassium (3.4-5.1) mmol/L Chloride (98-107) mmol/L Carbon Dioxide (22-32) mmol/L BUN (7-17) mg/dL Creatinine (0.52-1.04) mg/dL Estimated GFR (>60) mL/min BUN/Creatinine Ratio (6-22) Glucose (80-110) mg/dL Calcium (8.4-10.2) mg/dL Magnesium (1.6-2.3) mg/dL Total Bilirubin (0.2-1.3) mg/dL AST (14-36) IU/L ALT (<35) IU/L Alkaline Phosphatase (38-126) U/L Total Creatine Kinase (30-135) U/L CK-MB (CK-2) CK-MB (CK-2) Rel Index Troponin I (0.01-0.034) ng/mL Total Protein (6.3-8.2) g/dL Albumin (3.5-5.0) g/dL Globulin (1.7-4.1) g/dL Albumin/Globulin Ratio (1.0-2.8) Urine RBC None seen (0-5/HPF) Urine WBC 1-5/hpf (0-5/HPF) Ur Squamous Epith Cells 0-1 /hpf (0-5/HPF) Urine Bacteria Occasional (0-1) (None) Ur Culture Indicated? Specimen cultured U Opiates 300ng/mL cut Negative (Negative) Ur Oxycodone Screen Negative (Negative) Urine Methadone Screen Negative (Negative) Ur Barbiturates Screen Negative (Negative) U Tricyclic Antidepress Negative (Negative) Ur Phencyclidine Scrn Negative (Negative) Ur Amphetamines Screen Negative (Negative) U Methamphetamines Scrn Negative (Negative) Ur MDMA Scrn (Ecstasy) Negative (Negative) U Benzodiazepines Scrn Negative (Negative) Urine Cocaine Screen Negative (Negative) U Marijuana (THC) Screen TNP SARS-CoV-2 (PCR) Negative (Negative) 04/12/22 04/12/22 Range/Units 13:33 13:33 WBC 10.2 D (4.5-11.0) X10^3/uL RBC 3.09 L (4.0-5.2) X10^6/uL Hgb 11.0 L (12.0-16.0) g/dL Hct 32.1 L (36-46) % MCV 103.7 H (80-100) fL MCH 35.5 H (26-34) PG MCHC 34.2 (30-36) % RDW 17.7 H (11.6-14.8) % Plt Count 202 (150-400) X10^3/uL Neut % (Auto) 87.4 H D (50-75) % Lymph % (Auto) 8.1 L (25-40) % [place] % (Auto) 4.4 (3-14) % Eos % (Auto) 0.0 L (2-4) % Baso % (Auto) 0.1 (0-2) % Neut # (Auto) 8900 H (9420-4610) /uL Lymph # (Auto) 800 L (6084-6784) /uL [place] # (Auto) 500 (0-900) /uL Eos # (Auto) 0 (0-450) /uL Baso # (Auto) 0 (0-100) /uL PT (10.1-12.7) SECONDS INR (0.9-1.3) APTT (26-36) SECONDS Sodium 141 (137-145) mmol/L Potassium 3.7 (3.4-5.1) mmol/L Chloride 105 (98-107) mmol/L Carbon Dioxide 30 (22-32) mmol/L BUN 46 H (7-17) mg/dL Creatinine 1.62 H (0.52-1.04) mg/dL Estimated GFR 32 L (>60) mL/min BUN/Creatinine Ratio 28.4 H (6-22) Glucose 130 H (80-110) mg/dL Calcium 10.2 (8.4-10.2) mg/dL Magnesium (1.6-2.3) mg/dL Total Bilirubin (0.2-1.3) mg/dL AST (14-36) IU/L ALT (<35) IU/L Alkaline Phosphatase (38-126) U/L Total Creatine Kinase (30-135) U/L CK-MB (CK-2) CK-MB (CK-2) Rel Index Troponin I (0.01-0.034) ng/mL Total Protein (6.3-8.2) g/dL Albumin (3.5-5.0) g/dL Globulin (1.7-4.1) g/dL Albumin/Globulin Ratio (1.0-2.8) Urine RBC (0-5/HPF) Urine WBC (0-5/HPF) Ur Squamous Epith Cells (0-5/HPF) Urine Bacteria (None) Ur Culture Indicated? U Opiates 300ng/mL cut (Negative) Ur Oxycodone Screen (Negative) Urine Methadone Screen (Negative) Ur Barbiturates Screen (Negative) U Tricyclic Antidepress (Negative) Ur Phencyclidine Scrn (Negative) Ur Amphetamines Screen (Negative) U Methamphetamines Scrn (Negative) Ur MDMA Scrn (Ecstasy) (Negative) U Benzodiazepines Scrn (Negative) Urine Cocaine Screen (Negative) U Marijuana (THC) Screen SARS-CoV-2 (PCR) (Negative) Point of Care Testing Glucose POC 99 Urine Dip Bedside Urine Glucose Negative Bedside Urine Bilirubin - Negative Bedside Urine Ketone - Negative Urine Specific [place] 1.015 Bedside Urine Occult Blood - Negative Bedside Urine pH 6.0 Bedside Urine Protein - Negative Bedside Urine Urobilinogen - Negative Bedside Urine Nitrite - Negative Bedside Urine Leukocytes ++ 125 Esterase Imaging Data Chest x-ray: Radiologist's Impression: IMPRESSION:? Cardiomegaly.? No acute cardiopulmonary abnormality. ? ? Dictated by: Horace Rouse M.D. on 04/10/2022 at 14:40 ? ? Approved by: Horace Rouse M.D. on 04/10/2022 at 14:41 ? CT scan - head: Radiologist's Impression: IMPRESSION:? 1. 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 2. No midline shift.? ? ? Dictated by: Sylvia Raygoza M.D. on 04/10/2022 at 14:42 ? ? Approved by: Sylvia Raygoza M.D. on 04/10/2022 at 14:45 ? ECG Data Interpretation: EKG obtained at 2:48 p.m. shows a sinus rhythm at a rate of 73 beats per minute with QTC of 423. No acute ST or T-wave changes seen. MDM Narrative Medical decision making narrative: Patient has failed immunotherapy and has worsening metastases with vasogenic edema and subacute stroke symptoms and confusion. At Dr. Montague's recommendation will do dexamethasone 4 mg 3 times a day. Will attempt to transfer to scheduled for radiation oncology if nonresponsive to dexamethasone. <Ronnie Payne DO - Last Filed: 04/12/22 03:38> Lab Data Labs: Lab Results 04/10/22 04/10/22 04/10/22 Range/Units 14:00 14:00 14:00 WBC 5.7 (4.5-11.0) X10^3/uL RBC 2.91 L (4.0-5.2) X10^6/uL Hgb 10.4 L (12.0-16.0) g/dL Hct 30.0 L (36-46) % MCV 103.0 H (80-100) fL MCH 35.8 H (26-34) PG MCHC 34.7 (30-36) % RDW 17.8 H (11.6-14.8) % Plt Count 169 (150-400) X10^3/uL Neut % (Auto) 64.7 (50-75) % Lymph % (Auto) 20.9 L (25-40) % [place] % (Auto) 11.3 (3-14) % Eos % (Auto) 2.2 (2-4) % Baso % (Auto) 0.9 (0-2) % Neut # (Auto) 3700 (4320-4660) /uL Lymph # (Auto) 1200 (0281-6441) /uL [place] # (Auto) 600 (0-900) /uL Eos # (Auto) 100 (0-450) /uL Baso # (Auto) 0 (0-100) /uL PT 13.6 H (10.1-12.7) SECONDS INR 1.2 (0.9-1.3) APTT 28 (26-36) SECONDS Sodium 138 (137-145) mmol/L Potassium 4.1 (3.4-5.1) mmol/L Chloride 104 (98-107) mmol/L Carbon Dioxide 29 (22-32) mmol/L BUN 41 H (7-17) mg/dL Creatinine 2.00 H (0.52-1.04) mg/dL Estimated GFR 25 L (>60) mL/min BUN/Creatinine Ratio 20.5 (6-22) Glucose 112 H (80-110) mg/dL Calcium 10.3 H (8.4-10.2) mg/dL Magnesium 1.6 (1.6-2.3) mg/dL Total Bilirubin 0.6 (0.2-1.3) mg/dL AST 56 H (14-36) IU/L ALT 44 H (<35) IU/L Alkaline Phosphatase 362 H (38-126) U/L Total Creatine Kinase 23 L (30-135) U/L CK-MB (CK-2) TNP CK-MB (CK-2) Rel Index TNP Troponin I < 0.012 (0.01-0.034) ng/mL Total Protein 8.1 (6.3-8.2) g/dL Albumin 3.9 (3.5-5.0) g/dL Globulin 4.2 H (1.7-4.1) g/dL Albumin/Globulin Ratio 0.9 L (1.0-2.8) Urine RBC (0-5/HPF) Urine WBC (0-5/HPF) Ur Squamous Epith Cells (0-5/HPF) Urine Bacteria (None) Ur Culture Indicated? U Opiates 300ng/mL cut (Negative) Ur Oxycodone Screen (Negative) Urine Methadone Screen (Negative) Ur Barbiturates Screen (Negative) U Tricyclic Antidepress (Negative) Ur Phencyclidine Scrn (Negative) Ur Amphetamines Screen (Negative) U Methamphetamines Scrn (Negative) Ur MDMA Scrn (Ecstasy) (Negative) U Benzodiazepines Scrn (Negative) Urine Cocaine Screen (Negative) U Marijuana (THC) Screen SARS-CoV-2 (PCR) (Negative) 04/10/22 04/10/22 04/10/22 Range/Units 16:43 16:43 16:47 WBC (4.5-11.0) X10^3/uL RBC (4.0-5.2) X10^6/uL Hgb (12.0-16.0) g/dL Hct (36-46) % MCV (80-100) fL MCH (26-34) PG MCHC (30-36) % RDW (11.6-14.8) % Plt Count (150-400) X10^3/uL Neut % (Auto) (50-75) % Lymph % (Auto) (25-40) % [place] % (Auto) (3-14) % Eos % (Auto) (2-4) % Baso % (Auto) (0-2) % Neut # (Auto) (1478-0315) /uL Lymph # (Auto) (9703-4043) /uL [place] # (Auto) (0-900) /uL Eos # (Auto) (0-450) /uL Baso # (Auto) (0-100) /uL PT (10.1-12.7) SECONDS INR (0.9-1.3) APTT (26-36) SECONDS Sodium (137-145) mmol/L Potassium (3.4-5.1) mmol/L Chloride (98-107) mmol/L Carbon Dioxide (22-32) mmol/L BUN (7-17) mg/dL Creatinine (0.52-1.04) mg/dL Estimated GFR (>60) mL/min BUN/Creatinine Ratio (6-22) Glucose (80-110) mg/dL Calcium (8.4-10.2) mg/dL Magnesium (1.6-2.3) mg/dL Total Bilirubin (0.2-1.3) mg/dL AST (14-36) IU/L ALT (<35) IU/L Alkaline Phosphatase (38-126) U/L Total Creatine Kinase (30-135) U/L CK-MB (CK-2) CK-MB (CK-2) Rel Index Troponin I (0.01-0.034) ng/mL Total Protein (6.3-8.2) g/dL Albumin (3.5-5.0) g/dL Globulin (1.7-4.1) g/dL Albumin/Globulin Ratio (1.0-2.8) Urine RBC None seen (0-5/HPF) Urine WBC 1-5/hpf (0-5/HPF) Ur Squamous Epith Cells 0-1 /hpf (0-5/HPF) Urine Bacteria Occasional (0-1) (None) Ur Culture Indicated? Specimen cultured U Opiates 300ng/mL cut Negative (Negative) Ur Oxycodone Screen Negative (Negative) Urine Methadone Screen Negative (Negative) Ur Barbiturates Screen Negative (Negative) U Tricyclic Antidepress Negative (Negative) Ur Phencyclidine Scrn Negative (Negative) Ur Amphetamines Screen Negative (Negative) U Methamphetamines Scrn Negative (Negative) Ur MDMA Scrn (Ecstasy) Negative (Negative) U Benzodiazepines Scrn Negative (Negative) Urine Cocaine Screen Negative (Negative) U Marijuana (THC) Screen TNP SARS-CoV-2 (PCR) Negative (Negative) 04/12/22 04/12/22 Range/Units 13:33 13:33 WBC 10.2 D (4.5-11.0) X10^3/uL RBC 3.09 L (4.0-5.2) X10^6/uL Hgb 11.0 L (12.0-16.0) g/dL Hct 32.1 L (36-46) % MCV 103.7 H (80-100) fL MCH 35.5 H (26-34) PG MCHC 34.2 (30-36) % RDW 17.7 H (11.6-14.8) % Plt Count 202 (150-400) X10^3/uL Neut % (Auto) 87.4 H D (50-75) % Lymph % (Auto) 8.1 L (25-40) % [place] % (Auto) 4.4 (3-14) % Eos % (Auto) 0.0 L (2-4) % Baso % (Auto) 0.1 (0-2) % Neut # (Auto) 8900 H (6400-0667) /uL Lymph # (Auto) 800 L (6104-5753) /uL [place] # (Auto) 500 (0-900) /uL Eos # (Auto) 0 (0-450) /uL Baso # (Auto) 0 (0-100) /uL PT (10.1-12.7) SECONDS INR (0.9-1.3) APTT (26-36) SECONDS Sodium 141 (137-145) mmol/L Potassium 3.7 (3.4-5.1) mmol/L Chloride 105 (98-107) mmol/L Carbon Dioxide 30 (22-32) mmol/L BUN 46 H (7-17) mg/dL Creatinine 1.62 H (0.52-1.04) mg/dL Estimated GFR 32 L (>60) mL/min BUN/Creatinine Ratio 28.4 H (6-22) Glucose 130 H (80-110) mg/dL Calcium 10.2 (8.4-10.2) mg/dL Magnesium (1.6-2.3) mg/dL Total Bilirubin (0.2-1.3) mg/dL AST (14-36) IU/L ALT (<35) IU/L Alkaline Phosphatase (38-126) U/L Total Creatine Kinase (30-135) U/L CK-MB (CK-2) CK-MB (CK-2) Rel Index Troponin I (0.01-0.034) ng/mL Total Protein (6.3-8.2) g/dL Albumin (3.5-5.0) g/dL Globulin (1.7-4.1) g/dL Albumin/Globulin Ratio (1.0-2.8) Urine RBC (0-5/HPF) Urine WBC (0-5/HPF) Ur Squamous Epith Cells (0-5/HPF) Urine Bacteria (None) Ur Culture Indicated? U Opiates 300ng/mL cut (Negative) Ur Oxycodone Screen (Negative) Urine Methadone Screen (Negative) Ur Barbiturates Screen (Negative) U Tricyclic Antidepress (Negative) Ur Phencyclidine Scrn (Negative) Ur Amphetamines Screen (Negative) U Methamphetamines Scrn (Negative) Ur MDMA Scrn (Ecstasy) (Negative) U Benzodiazepines Scrn (Negative) Urine Cocaine Screen (Negative) U Marijuana (THC) Screen SARS-CoV-2 (PCR) (Negative) Point of Care Testing Glucose POC 99 Urine Dip Bedside Urine Glucose Negative Bedside Urine Bilirubin - Negative Bedside Urine Ketone - Negative Urine Specific [place] 1.015 Bedside Urine Occult Blood - Negative Bedside Urine pH 6.0 Bedside Urine Protein - Negative Bedside Urine Urobilinogen - Negative Bedside Urine Nitrite - Negative Bedside Urine Leukocytes ++ 125 Esterase <Pavithra Aguillon, DO - Last Filed: 04/11/22 20:39> Lab Data Labs: Lab Results 04/10/22 04/10/22 04/10/22 Range/Units 14:00 14:00 14:00 WBC 5.7 (4.5-11.0) X10^3/uL RBC 2.91 L (4.0-5.2) X10^6/uL Hgb 10.4 L (12.0-16.0) g/dL Hct 30.0 L (36-46) % MCV 103.0 H (80-100) fL MCH 35.8 H (26-34) PG MCHC 34.7 (30-36) % RDW 17.8 H (11.6-14.8) % Plt Count 169 (150-400) X10^3/uL Neut % (Auto) 64.7 (50-75) % Lymph % (Auto) 20.9 L (25-40) % [place] % (Auto) 11.3 (3-14) % Eos % (Auto) 2.2 (2-4) % Baso % (Auto) 0.9 (0-2) % Neut # (Auto) 3700 (4321-3102) /uL Lymph # (Auto) 1200 (2543-7995) /uL [place] # (Auto) 600 (0-900) /uL Eos # (Auto) 100 (0-450) /uL Baso # (Auto) 0 (0-100) /uL PT 13.6 H (10.1-12.7) SECONDS INR 1.2 (0.9-1.3) APTT 28 (26-36) SECONDS Sodium 138 (137-145) mmol/L Potassium 4.1 (3.4-5.1) mmol/L Chloride 104 (98-107) mmol/L Carbon Dioxide 29 (22-32) mmol/L BUN 41 H (7-17) mg/dL Creatinine 2.00 H (0.52-1.04) mg/dL Estimated GFR 25 L (>60) mL/min BUN/Creatinine Ratio 20.5 (6-22) Glucose 112 H (80-110) mg/dL Calcium 10.3 H (8.4-10.2) mg/dL Magnesium 1.6 (1.6-2.3) mg/dL Total Bilirubin 0.6 (0.2-1.3) mg/dL AST 56 H (14-36) IU/L ALT 44 H (<35) IU/L Alkaline Phosphatase 362 H (38-126) U/L Total Creatine Kinase 23 L (30-135) U/L CK-MB (CK-2) TNP CK-MB (CK-2) Rel Index TNP Troponin I < 0.012 (0.01-0.034) ng/mL Total Protein 8.1 (6.3-8.2) g/dL Albumin 3.9 (3.5-5.0) g/dL Globulin 4.2 H (1.7-4.1) g/dL Albumin/Globulin Ratio 0.9 L (1.0-2.8) Urine RBC (0-5/HPF) Urine WBC (0-5/HPF) Ur Squamous Epith Cells (0-5/HPF) Urine Bacteria (None) Ur Culture Indicated? U Opiates 300ng/mL cut (Negative) Ur Oxycodone Screen (Negative) Urine Methadone Screen (Negative) Ur Barbiturates Screen (Negative) U Tricyclic Antidepress (Negative) Ur Phencyclidine Scrn (Negative) Ur Amphetamines Screen (Negative) U Methamphetamines Scrn (Negative) Ur MDMA Scrn (Ecstasy) (Negative) U Benzodiazepines Scrn (Negative) Urine Cocaine Screen (Negative) U Marijuana (THC) Screen SARS-CoV-2 (PCR) (Negative) 04/10/22 04/10/22 04/10/22 Range/Units 16:43 16:43 16:47 WBC (4.5-11.0) X10^3/uL RBC (4.0-5.2) X10^6/uL Hgb (12.0-16.0) g/dL Hct (36-46) % MCV (80-100) fL MCH (26-34) PG MCHC (30-36) % RDW (11.6-14.8) % Plt Count (150-400) X10^3/uL Neut % (Auto) (50-75) % Lymph % (Auto) (25-40) % [place] % (Auto) (3-14) % Eos % (Auto) (2-4) % Baso % (Auto) (0-2) % Neut # (Auto) (5627-2242) /uL Lymph # (Auto) (6567-0995) /uL [place] # (Auto) (0-900) /uL Eos # (Auto) (0-450) /uL Baso # (Auto) (0-100) /uL PT (10.1-12.7) SECONDS INR (0.9-1.3) APTT (26-36) SECONDS Sodium (137-145) mmol/L Potassium (3.4-5.1) mmol/L Chloride (98-107) mmol/L Carbon Dioxide (22-32) mmol/L BUN (7-17) mg/dL Creatinine (0.52-1.04) mg/dL Estimated GFR (>60) mL/min BUN/Creatinine Ratio (6-22) Glucose (80-110) mg/dL Calcium (8.4-10.2) mg/dL Magnesium (1.6-2.3) mg/dL Total Bilirubin (0.2-1.3) mg/dL AST (14-36) IU/L ALT (<35) IU/L Alkaline Phosphatase (38-126) U/L Total Creatine Kinase (30-135) U/L CK-MB (CK-2) CK-MB (CK-2) Rel Index Troponin I (0.01-0.034) ng/mL Total Protein (6.3-8.2) g/dL Albumin (3.5-5.0) g/dL Globulin (1.7-4.1) g/dL Albumin/Globulin Ratio (1.0-2.8) Urine RBC None seen (0-5/HPF) Urine WBC 1-5/hpf (0-5/HPF) Ur Squamous Epith Cells 0-1 /hpf (0-5/HPF) Urine Bacteria Occasional (0-1) (None) Ur Culture Indicated? Specimen cultured U Opiates 300ng/mL cut Negative (Negative) Ur Oxycodone Screen Negative (Negative) Urine Methadone Screen Negative (Negative) Ur Barbiturates Screen Negative (Negative) U Tricyclic Antidepress Negative (Negative) Ur Phencyclidine Scrn Negative (Negative) Ur Amphetamines Screen Negative (Negative) U Methamphetamines Scrn Negative (Negative) Ur MDMA Scrn (Ecstasy) Negative (Negative) U Benzodiazepines Scrn Negative (Negative) Urine Cocaine Screen Negative (Negative) U Marijuana (THC) Screen TNP SARS-CoV-2 (PCR) Negative (Negative) 04/12/22 04/12/22 Range/Units 13:33 13:33 WBC 10.2 D (4.5-11.0) X10^3/uL RBC 3.09 L (4.0-5.2) X10^6/uL Hgb 11.0 L (12.0-16.0) g/dL Hct 32.1 L (36-46) % MCV 103.7 H (80-100) fL MCH 35.5 H (26-34) PG MCHC 34.2 (30-36) % RDW 17.7 H (11.6-14.8) % Plt Count 202 (150-400) X10^3/uL Neut % (Auto) 87.4 H D (50-75) % Lymph % (Auto) 8.1 L (25-40) % [place] % (Auto) 4.4 (3-14) % Eos % (Auto) 0.0 L (2-4) % Baso % (Auto) 0.1 (0-2) % Neut # (Auto) 8900 H (2420-8801) /uL Lymph # (Auto) 800 L (4394-9722) /uL [place] # (Auto) 500 (0-900) /uL Eos # (Auto) 0 (0-450) /uL Baso # (Auto) 0 (0-100) /uL PT (10.1-12.7) SECONDS INR (0.9-1.3) APTT (26-36) SECONDS Sodium 141 (137-145) mmol/L Potassium 3.7 (3.4-5.1) mmol/L Chloride 105 (98-107) mmol/L Carbon Dioxide 30 (22-32) mmol/L BUN 46 H (7-17) mg/dL Creatinine 1.62 H (0.52-1.04) mg/dL Estimated GFR 32 L (>60) mL/min BUN/Creatinine Ratio 28.4 H (6-22) Glucose 130 H (80-110) mg/dL Calcium 10.2 (8.4-10.2) mg/dL Magnesium (1.6-2.3) mg/dL Total Bilirubin (0.2-1.3) mg/dL AST (14-36) IU/L ALT (<35) IU/L Alkaline Phosphatase (38-126) U/L Total Creatine Kinase (30-135) U/L CK-MB (CK-2) CK-MB (CK-2) Rel Index Troponin I (0.01-0.034) ng/mL Total Protein (6.3-8.2) g/dL Albumin (3.5-5.0) g/dL Globulin (1.7-4.1) g/dL Albumin/Globulin Ratio (1.0-2.8) Urine RBC (0-5/HPF) Urine WBC (0-5/HPF) Ur Squamous Epith Cells (0-5/HPF) Urine Bacteria (None) Ur Culture Indicated? U Opiates 300ng/mL cut (Negative) Ur Oxycodone Screen (Negative) Urine Methadone Screen (Negative) Ur Barbiturates Screen (Negative) U Tricyclic Antidepress (Negative) Ur Phencyclidine Scrn (Negative) Ur Amphetamines Screen (Negative) U Methamphetamines Scrn (Negative) Ur MDMA Scrn (Ecstasy) (Negative) U Benzodiazepines Scrn (Negative) Urine Cocaine Screen (Negative) U Marijuana (THC) Screen SARS-CoV-2 (PCR) (Negative) Point of Care Testing Glucose POC 99 Urine Dip Bedside Urine Glucose Negative Bedside Urine Bilirubin - Negative Bedside Urine Ketone - Negative Urine Specific [place] 1.015 Bedside Urine Occult Blood - Negative Bedside Urine pH 6.0 Bedside Urine Protein - Negative Bedside Urine Urobilinogen - Negative Bedside Urine Nitrite - Negative Bedside Urine Leukocytes ++ 125 Esterase MDM Narrative Medical decision making narrative: Patient has failed immunotherapy and has worsening metastases with vasogenic edema and subacute stroke symptoms and confusion. At Dr. Montague's recommendation will do dexamethasone 4 mg 3 times a day. Will attempt to transfer to scheduled for radiation oncology if nonresponsive to dexamethasone. [place] 04/11/22: Patient signed out to myself by Dr. Singletary. Patient seen evaluated independently by myself patient is pleasantly confused but has had improvement of shaking of her upper extremity but not really her mentation. Patient's family is at bedside. At this time goal is for transfer for palliative radiation oncology for improvement of patient's symptoms. Patient had a ground level fall with no obvious traumatic injury. Labs and imaging reviewed with the patient and her family at bedside, recommendations from heme Onc and goals of care. Patient is DNR/DNI. Patient's family also brought in her power of deputy commonwealth's attorney and [place] healthcare form as well as POS[employer]. <Radha Peacock, DO - Last Filed: 04/25/22 07:33> Lab Data Labs: Lab Results 04/10/22 04/10/22 04/10/22 Range/Units 14:00 14:00 14:00 WBC 5.7 (4.5-11.0) X10^3/uL RBC 2.91 L (4.0-5.2) X10^6/uL Hgb 10.4 L (12.0-16.0) g/dL Hct 30.0 L (36-46) % MCV 103.0 H (80-100) fL MCH 35.8 H (26-34) PG MCHC 34.7 (30-36) % RDW 17.8 H (11.6-14.8) % Plt Count 169 (150-400) X10^3/uL Neut % (Auto) 64.7 (50-75) % Lymph % (Auto) 20.9 L (25-40) % [place] % (Auto) 11.3 (3-14) % Eos % (Auto) 2.2 (2-4) % Baso % (Auto) 0.9 (0-2) % Neut # (Auto) 3700 (3443-6954) /uL Lymph # (Auto) 1200 (3079-7644) /uL [place] # (Auto) 600 (0-900) /uL Eos # (Auto) 100 (0-450) /uL Baso # (Auto) 0 (0-100) /uL PT 13.6 H (10.1-12.7) SECONDS INR 1.2 (0.9-1.3) APTT 28 (26-36) SECONDS Sodium 138 (137-145) mmol/L Potassium 4.1 (3.4-5.1) mmol/L Chloride 104 (98-107) mmol/L Carbon Dioxide 29 (22-32) mmol/L BUN 41 H (7-17) mg/dL Creatinine 2.00 H (0.52-1.04) mg/dL Estimated GFR 25 L (>60) mL/min BUN/Creatinine Ratio 20.5 (6-22) Glucose 112 H (80-110) mg/dL Calcium 10.3 H (8.4-10.2) mg/dL Magnesium 1.6 (1.6-2.3) mg/dL Total Bilirubin 0.6 (0.2-1.3) mg/dL AST 56 H (14-36) IU/L ALT 44 H (<35) IU/L Alkaline Phosphatase 362 H (38-126) U/L Total Creatine Kinase 23 L (30-135) U/L CK-MB (CK-2) TNP CK-MB (CK-2) Rel Index TNP Troponin I < 0.012 (0.01-0.034) ng/mL Total Protein 8.1 (6.3-8.2) g/dL Albumin 3.9 (3.5-5.0) g/dL Globulin 4.2 H (1.7-4.1) g/dL Albumin/Globulin Ratio 0.9 L (1.0-2.8) Urine RBC (0-5/HPF) Urine WBC (0-5/HPF) Ur Squamous Epith Cells (0-5/HPF) Urine Bacteria (None) Ur Culture Indicated? U Opiates 300ng/mL cut (Negative) Ur Oxycodone Screen (Negative) Urine Methadone Screen (Negative) Ur Barbiturates Screen (Negative) U Tricyclic Antidepress (Negative) Ur Phencyclidine Scrn (Negative) Ur Amphetamines Screen (Negative) U Methamphetamines Scrn (Negative) Ur MDMA Scrn (Ecstasy) (Negative) U Benzodiazepines Scrn (Negative) Urine Cocaine Screen (Negative) U Marijuana (THC) Screen SARS-CoV-2 (PCR) (Negative) 04/10/22 04/10/22 04/10/22 Range/Units 16:43 16:43 16:47 WBC (4.5-11.0) X10^3/uL RBC (4.0-5.2) X10^6/uL Hgb (12.0-16.0) g/dL Hct (36-46) % MCV (80-100) fL MCH (26-34) PG MCHC (30-36) % RDW (11.6-14.8) % Plt Count (150-400) X10^3/uL Neut % (Auto) (50-75) % Lymph % (Auto) (25-40) % [place] % (Auto) (3-14) % Eos % (Auto) (2-4) % Baso % (Auto) (0-2) % Neut # (Auto) (6407-6383) /uL Lymph # (Auto) (7436-9490) /uL [place] # (Auto) (0-900) /uL Eos # (Auto) (0-450) /uL Baso # (Auto) (0-100) /uL PT (10.1-12.7) SECONDS INR (0.9-1.3) APTT (26-36) SECONDS Sodium (137-145) mmol/L Potassium (3.4-5.1) mmol/L Chloride (98-107) mmol/L Carbon Dioxide (22-32) mmol/L BUN (7-17) mg/dL Creatinine (0.52-1.04) mg/dL Estimated GFR (>60) mL/min BUN/Creatinine Ratio (6-22) Glucose (80-110) mg/dL Calcium (8.4-10.2) mg/dL Magnesium (1.6-2.3) mg/dL Total Bilirubin (0.2-1.3) mg/dL AST (14-36) IU/L ALT (<35) IU/L Alkaline Phosphatase (38-126) U/L Total Creatine Kinase (30-135) U/L CK-MB (CK-2) CK-MB (CK-2) Rel Index Troponin I (0.01-0.034) ng/mL Total Protein (6.3-8.2) g/dL Albumin (3.5-5.0) g/dL Globulin (1.7-4.1) g/dL Albumin/Globulin Ratio (1.0-2.8) Urine RBC None seen (0-5/HPF) Urine WBC 1-5/hpf (0-5/HPF) Ur Squamous Epith Cells 0-1 /hpf (0-5/HPF) Urine Bacteria Occasional (0-1) (None) Ur Culture Indicated? Specimen cultured U Opiates 300ng/mL cut Negative (Negative) Ur Oxycodone Screen Negative (Negative) Urine Methadone Screen Negative (Negative) Ur Barbiturates Screen Negative (Negative) U Tricyclic Antidepress Negative (Negative) Ur Phencyclidine Scrn Negative (Negative) Ur Amphetamines Screen Negative (Negative) U Methamphetamines Scrn Negative (Negative) Ur MDMA Scrn (Ecstasy) Negative (Negative) U Benzodiazepines Scrn Negative (Negative) Urine Cocaine Screen Negative (Negative) U Marijuana (THC) Screen TNP SARS-CoV-2 (PCR) Negative (Negative) 04/12/22 04/12/22 Range/Units 13:33 13:33 WBC 10.2 D (4.5-11.0) X10^3/uL RBC 3.09 L (4.0-5.2) X10^6/uL Hgb 11.0 L (12.0-16.0) g/dL Hct 32.1 L (36-46) % MCV 103.7 H (80-100) fL MCH 35.5 H (26-34) PG MCHC 34.2 (30-36) % RDW 17.7 H (11.6-14.8) % Plt Count 202 (150-400) X10^3/uL Neut % (Auto) 87.4 H D (50-75) % Lymph % (Auto) 8.1 L (25-40) % [place] % (Auto) 4.4 (3-14) % Eos % (Auto) 0.0 L (2-4) % Baso % (Auto) 0.1 (0-2) % Neut # (Auto) 8900 H (6597-2523) /uL Lymph # (Auto) 800 L (0144-7108) /uL [place] # (Auto) 500 (0-900) /uL Eos # (Auto) 0 (0-450) /uL Baso # (Auto) 0 (0-100) /uL PT (10.1-12.7) SECONDS INR (0.9-1.3) APTT (26-36) SECONDS Sodium 141 (137-145) mmol/L Potassium 3.7 (3.4-5.1) mmol/L Chloride 105 (98-107) mmol/L Carbon Dioxide 30 (22-32) mmol/L BUN 46 H (7-17) mg/dL Creatinine 1.62 H (0.52-1.04) mg/dL Estimated GFR 32 L (>60) mL/min BUN/Creatinine Ratio 28.4 H (6-22) Glucose 130 H (80-110) mg/dL Calcium 10.2 (8.4-10.2) mg/dL Magnesium (1.6-2.3) mg/dL Total Bilirubin (0.2-1.3) mg/dL AST (14-36) IU/L ALT (<35) IU/L Alkaline Phosphatase (38-126) U/L Total Creatine Kinase (30-135) U/L CK-MB (CK-2) CK-MB (CK-2) Rel Index Troponin I (0.01-0.034) ng/mL Total Protein (6.3-8.2) g/dL Albumin (3.5-5.0) g/dL Globulin (1.7-4.1) g/dL Albumin/Globulin Ratio (1.0-2.8) Urine RBC (0-5/HPF) Urine WBC (0-5/HPF) Ur Squamous Epith Cells (0-5/HPF) Urine Bacteria (None) Ur Culture Indicated? U Opiates 300ng/mL cut (Negative) Ur Oxycodone Screen (Negative) Urine Methadone Screen (Negative) Ur Barbiturates Screen (Negative) U Tricyclic Antidepress (Negative) Ur Phencyclidine Scrn (Negative) Ur Amphetamines Screen (Negative) U Methamphetamines Scrn (Negative) Ur MDMA Scrn (Ecstasy) (Negative) U Benzodiazepines Scrn (Negative) Urine Cocaine Screen (Negative) U Marijuana (THC) Screen SARS-CoV-2 (PCR) (Negative) Point of Care Testing Glucose POC 99 Urine Dip Bedside Urine Glucose Negative Bedside Urine Bilirubin - Negative Bedside Urine Ketone - Negative Urine Specific [place] 1.015 Bedside Urine Occult Blood - Negative Bedside Urine pH 6.0 Bedside Urine Protein - Negative Bedside Urine Urobilinogen - Negative Bedside Urine Nitrite - Negative Bedside Urine Leukocytes ++ 125 Esterase MDM Narrative Medical decision making narrative: Patient has failed immunotherapy and has worsening metastases with vasogenic edema and subacute stroke symptoms and confusion. At Dr. Montague's recommendation will do dexamethasone 4 mg 3 times a day. Will attempt to transfer to scheduled for radiation oncology if nonresponsive to dexamethasone. Mank 04/11/22: Patient signed out to myself by Dr. Singletary. Patient seen evaluated independently by myself patient is pleasantly confused but has had improvement of shaking of her upper extremity but not really her mentation. Patient's family is at bedside. At this time goal is for transfer for palliat katherine radiation oncology for improvement of patient's symptoms. Patient had a ground level fall with no obvious traumatic injury. Labs and imaging reviewed with the patient and her family at bedside, recommendations from heme Onc and goals of care. Patient is DNR/DNI. Patient's family also brought in her power of deputy commonwealth's attorney and [facility] form as well as [facility]. 04/12/22 730 am Ayush Patient signed out to me by Dr. Payne. I have seen evaluated patient myself. Patient has worsening brain metastasis with vasogenic edema subacute stroke. This morning she is confused but no deficits. Goal is to transfer for palliative radiation over [facility]. Morning labs pending. 04/13/22 Ayush He is signed out to me by Dr. Marley seen evaluated patient myself. Resting co mfortably. I spoke with Oncology over [facility]. Goal is for patient to go to [facility] for palliative care cranial radiation and IV steroids. They anticipate a bed to open up later today. Patient has been receiving p.o. Decadron for last 66 hours and I have changed her over to IV Decadron. <Holden Acosta, DO - Last Filed: 04/14/22 11:24> Lab Data Labs: Lab Results 04/10/22 04/10/22 04/10/22 Range/Units 14:00 14:00 14:00 WBC 5.7 (4.5-11.0) X10^3/uL RBC 2.91 L (4.0-5.2) X10^6/uL Hgb 10.4 L (12.0-16.0) g/dL Hct 30.0 L (36-46) % MCV 103.0 H (80-100) fL MCH 35.8 H (26-34) PG MCHC 34.7 (30-36) % RDW 17.8 H (11.6-14.8) % Plt Count 169 (150-400) X10^3/uL Neut % (Auto) 64.7 (50-75) % Lymph % (Auto) 20.9 L (25-40) % [place] % (Auto) 11.3 (3-14) % Eos % (Auto) 2.2 (2-4) % Baso % (Auto) 0.9 (0-2) % Neut # (Auto) 3700 (4503-2394) /uL Lymph # (Auto) 1200 (2592-8696) /uL [place] # (Auto) 600 (0-900) /uL Eos # (Auto) 100 (0-450) /uL Baso # (Auto) 0 (0-100) /uL PT 13.6 H (10.1-12.7) SECONDS INR 1.2 (0.9-1.3) APTT 28 (26-36) SECONDS Sodium 138 (137-145) mmol/L Potassium 4.1 (3.4-5.1) mmol/L Chloride 104 (98-107) mmol/L Carbon Dioxide 29 (22-32) mmol/L BUN 41 H (7-17) mg/dL Creatinine 2.00 H (0.52-1.04) mg/dL Estimated GFR 25 L (>60) mL/min BUN/Creatinine Ratio 20.5 (6-22) Glucose 112 H (80-110) mg/dL Calcium 10.3 H (8.4-10.2) mg/dL Magnesium 1.6 (1.6-2.3) mg/dL Total Bilirubin 0.6 (0.2-1.3) mg/dL AST 56 H (14-36) IU/L ALT 44 H (<35) IU/L Alkaline Phosphatase 362 H (38-126) U/L Total Creatine Kinase 23 L (30-135) U/L CK-MB (CK-2) TNP CK-MB (CK-2) Rel Index TNP Troponin I < 0.012 (0.01-0.034) ng/mL Total Protein 8.1 (6.3-8.2) g/dL Albumin 3.9 (3.5-5.0) g/dL Globulin 4.2 H (1.7-4.1) g/dL Albumin/Globulin Ratio 0.9 L (1.0-2.8) Urine RBC (0-5/HPF) Urine WBC (0-5/HPF) Ur Squamous Epith Cells (0-5/HPF) Urine Bacteria (None) Ur Culture Indicated? U Opiates 300ng/mL cut (Negative) Ur Oxycodone Screen (Negative) Urine Methadone Screen (Negative) Ur Barbiturates Screen (Negative) U Tricyclic Antidepress (Negative) Ur Phencyclidine Scrn (Negative) Ur Amphetamines Screen (Negative) U Methamphetamines Scrn (Negative) Ur MDMA Scrn (Ecstasy) (Negative) U Benzodiazepines Scrn (Negative) Urine Cocaine Screen (Negative) U Marijuana (THC) Screen SARS-CoV-2 (PCR) (Negative) 04/10/22 04/10/22 04/10/22 Range/Units 16:43 16:43 16:47 WBC (4.5-11.0) X10^3/uL RBC (4.0-5.2) X10^6/uL Hgb (12.0-16.0) g/dL Hct (36-46) % MCV (80-100) fL MCH (26-34) PG MCHC (30-36) % RDW (11.6-14.8) % Plt Count (150-400) X10^3/uL Neut % (Auto) (50-75) % Lymph % (Auto) (25-40) % [place] % (Auto) (3-14) % Eos % (Auto) (2-4) % Baso % (Auto) (0-2) % Neut # (Auto) (0506-8610) /uL Lymph # (Auto) (4308-4582) /uL [place] # (Auto) (0-900) /uL Eos # (Auto) (0-450) /uL Baso # (Auto) (0-100) /uL PT (10.1-12.7) SECONDS INR (0.9-1.3) APTT (26-36) SECONDS Sodium (137-145) mmol/L Potassium (3.4-5.1) mmol/L Chloride (98-107) mmol/L Carbon Dioxide (22-32) mmol/L BUN (7-17) mg/dL Creatinine (0.52-1.04) mg/dL Estimated GFR (>60) mL/min BUN/Creatinine Ratio (6-22) Glucose (80-110) mg/dL Calcium (8.4-10.2) mg/dL Magnesium (1.6-2.3) mg/dL Total Bilirubin (0.2-1.3) mg/dL AST (14-36) IU/L ALT (<35) IU/L Alkaline Phosphatase (38-126) U/L Total Creatine Kinase (30-135) U/L CK-MB (CK-2) CK-MB (CK-2) Rel Index Troponin I (0.01-0.034) ng/mL Total Protein (6.3-8.2) g/dL Albumin (3.5-5.0) g/dL Globulin (1.7-4.1) g/dL Albumin/Globulin Ratio (1.0-2.8) Urine RBC None seen (0-5/HPF) Urine WBC 1-5/hpf (0-5/HPF) Ur Squamous Epith Cells 0-1 /hpf (0-5/HPF) Urine Bacteria Occasional (0-1) (None) Ur Culture Indicated? Specimen cultured U Opiates 300ng/mL cut Negative (Negative) Ur Oxycodone Screen Negative (Negative) Urine Methadone Screen Negative (Negative) Ur Barbiturates Screen Negative (Negative) U Tricyclic Antidepress Negative (Negative) Ur Phencyclidine Scrn Negative (Negative) Ur Amphetamines Screen Negative (Negative) U Methamphetamines Scrn Negative (Negative) Ur MDMA Scrn (Ecstasy) Negative (Negative) U Benzodiazepines Scrn Negative (Negative) Urine Cocaine Screen Negative (Negative) U Marijuana (THC) Screen TNP SARS-CoV-2 (PCR) Negative (Negative) 04/12/22 04/12/22 Range/Units 13:33 13:33 WBC 10.2 D (4.5-11.0) X10^3/uL RBC 3.09 L (4.0-5.2) X10^6/uL Hgb 11.0 L (12.0-16.0) g/dL Hct 32.1 L (36-46) % MCV 103.7 H (80-100) fL MCH 35.5 H (26-34) PG MCHC 34.2 (30-36) % RDW 17.7 H (11.6-14.8) % Plt Count 202 (150-400) X10^3/uL Neut % (Auto) 87.4 H D (50-75) % Lymph % (Auto) 8.1 L (25-40) % [place] % (Auto) 4.4 (3-14) % Eos % (Auto) 0.0 L (2-4) % Baso % (Auto) 0.1 (0-2) % Neut # (Auto) 8900 H (6884-7103) /uL Lymph # (Auto) 800 L (8110-5848) /uL [place] # (Auto) 500 (0-900) /uL Eos # (Auto) 0 (0-450) /uL Baso # (Auto) 0 (0-100) /uL PT (10.1-12.7) SECONDS INR (0.9-1.3) APTT (26-36) SECONDS Sodium 141 (137-145) mmol/L Potassium 3.7 (3.4-5.1) mmol/L Chloride 105 (98-107) mmol/L Carbon Dioxide 30 (22-32) mmol/L BUN 46 H (7-17) mg/dL Creatinine 1.62 H (0.52-1.04) mg/dL Estimated GFR 32 L (>60) mL/min BUN/Creatinine Ratio 28.4 H (6-22) Glucose 130 H (80-110) mg/dL Calcium 10.2 (8.4-10.2) mg/dL Magnesium (1.6-2.3) mg/dL Total Bilirubin (0.2-1.3) mg/dL AST (14-36) IU/L ALT (<35) IU/L Alkaline Phosphatase (38-126) U/L Total Creatine Kinase (30-135) U/L CK-MB (CK-2) CK-MB (CK-2) Rel Index Troponin I (0.01-0.034) ng/mL Total Protein (6.3-8.2) g/dL Albumin (3.5-5.0) g/dL Globulin (1.7-4.1) g/dL Albumin/Globulin Ratio (1.0-2.8) Urine RBC (0-5/HPF) Urine WBC (0-5/HPF) Ur Squamous Epith Cells (0-5/HPF) Urine Bacteria (None) Ur Culture Indicated? U Opiates 300ng/mL cut (Negative) Ur Oxycodone Screen (Negative) Urine Methadone Screen (Negative) Ur Barbiturates Screen (Negative) U Tricyclic Antidepress (Negative) Ur Phencyclidine Scrn (Negative) Ur Amphetamines Screen (Negative) U Methamphetamines Scrn (Negative) Ur MDMA Scrn (Ecstasy) (Negative) U Benzodiazepines Scrn (Negative) Urine Cocaine Screen (Negative) U Marijuana (THC) Screen SARS-CoV-2 (PCR) (Negative) Point of Care Testing Glucose POC 99 Urine Dip Bedside Urine Glucose Negative Bedside Urine Bilirubin - Negative Bedside Urine Ketone - Negative Urine Specific [place] 1.015 Bedside Urine Occult Blood - Negative Bedside Urine pH 6.0 Bedside Urine Protein - Negative Bedside Urine Urobilinogen - Negative Bedside Urine Nitrite - Negative Bedside Urine Leukocytes ++ 125 Esterase Imaging Data Repeat head CT: Radiologist's Impression: [address] [address] [address] Scan Report Signed Patient: Ashanti Ontiveros MR#: [id number] : 1940 Acct:[id number] Age/Sex: 81 / F Date of Service: 04/14/22 Loc: ED Accession Number: [id number] ?? Procedure: CT head/brain wo con Ordering Provider: Holden Acosta D.O. PROCEDURE:? CT HEAD/BRAIN WO CON ? INDICATIONS:? eval for progression of edema from CT 04/10/22 ? TECHNIQUE:? Noncontrast 4.5 mm thick angled axial sections acquired from the foramen magnum to the vertex, with coronal and sagittal reformats.? For radiation dose reduction, the following was used:? automated exposure control, adjustment of mA and/or kV according to patient size.? ? COMPARISON:? [facility], CT, CT HEAD/BRAIN WO CON, 04/10/2022, 14:21. ? FINDINGS:? Image quality:? Excellent.? ? CSF spaces:? Basal cisterns are patent.? No extra-axial fluid collections.? The ventricles are symmetric in size and shape.? ? Brain:? Again noted is evidence of extensive deep white matter changes, consistent with a combination vasogenic edema and small vessel ischemic change.? Multiple vaguely identifiable subtle metastatic lesions are again noted, some of which contain products of hemorrhage which create a vague hyperdensity.? 1 of the metastatic lesions is again noted to extend from the parenchyma into the location of the frontal horn of the left lateral ventricle.? There is no acute hemorrhage identified.? No interval stroke.? There is cerebral volume loss for age, with resultant ventricular and sulcal prominence.? There is intracranial internal carotid artery atherosclerosis.? ? Skull and face:? Calvarium and visualized facial bones appear intact, without suspicious lesions.? ? Sinuses:? Visualized sinuses and mastoids are clear.? ? IMPRESSION:? No significant interval change, cerebral and cerebellar metastatic lesions, as previously noted.? No significant change in the amount deep white matter changes, consistent with a combination vasogenic edema and small vessel ischemic change.? No interval hemorrhage. ? ? Dictated by: Casey Leahy M.D. on 04/14/2022 at 7:59 ? ? Approved by: Casey Leahy M.D. on 04/14/2022 at 8:09? MDM Narrative Medical decision making narrative: Patient has failed immunotherapy and has worsening metastases with vasogenic edema and subacute stroke symptoms and confusion. At Dr. Montague's recommendation will do dexamethasone 4 mg 3 times a day. Will attempt to transfer to scheduled for radiation oncology if nonresponsive to dexamethasone. [facility] 04/11/22: Patient signed out to myself by Dr. Singletary. Patient seen evaluated independently by myself patient is pleasantly confused but has had improvement of shaking of her upper extremity but not really her mentation. Patient's family is at bedside. At this time goal is for transfer for palliativ e radiation oncology for improvement of patient's symptoms. Patient had a ground level fall with no obvious traumatic injury. Labs and imaging reviewed with the patient and her family at bedside, recommendations from heme Onc and goals of care. Patient is DNR/DNI. Patient's family also brought in her power of deputy commonwealth's attorney and [facility] form as well as POS[employer]. 04/12/22 730 am Ayush Patient signed out to me by Dr. Payne. I have seen evaluated patient myself. Patient has worsening brain metastasis with vasogenic edema subacute stroke. This morning she is confused but no deficits. Goal is to transfer for palliative radiation over [facility]. Morning labs pending. 04/13/22 Ayush He is signed out to me by Dr. Marley seen evaluated patient myself. Resting comfortably. I spoke with Oncology over [facility]. Goal is for patient to go to [facility] for palliative care cranial radiation and IV steroids. They anticipate a bed to open up later today. Patient has been receiving p.o. Decadron for last 66 hours and I have changed her over to IV Decadron. [facility] Reviewed patient's history and physical exam. Introduced myself to the patient. Patient is waiting transfer to [facility] for oncology for radiation. Repeat head CT today shows no changes in the edema. She is currently getting Decadron. Vital signs stable. Will continue to observe until transfer can be set up 04/14/22 [place]: Patient has been stable. Discussed the case with Dr. Whittington at [facility] who accepts the patient in transfer. Patient is stable for transport. Discharge Plan Departure Patient Disposition: [facility] Clinical Impression: Brain metastases, Small cell lung cancer Prescriptions: No Action olanzapine 5 mg Tablet 5 mg PO BEDTIME ondansetron 8 mg Tablet,Disintegrating 8 mg PO Q8H PRN (Reason: Nausea) losartan-hydrochlorothiazide 100-25 mg Tablet 1 tab PO DAILY benzonatate 100 mg Capsule 100 mg PO BID PRN (Reason: Cough) simvastatin 20 mg Tablet 20 mg PO DAILY montelukast 10 mg Tablet 10 mg PO BEDTIME mirtazapine 7.5 mg Tablet 7.5 mg PO DAILY ipratropium bromide 21 mcg (0.03 %) Keller,Non-Aerosol 2 spray BID-TID PRN (Reason: Shortness Of Breath) Rx Instructions: administer into each nostril Referrals: Miguel Bunch, [Primary Care Provider] -
[2022-04-10 14:53] LABS: Troponin I < 0.012 ng/mL (0.01-0.034)
--- NOTE | 2022-04-10 16:09 | PC.NURSE ---
Pt assisted up to bedside commode by this RN. Pt had increased confusion in understanding directions. Pt unsteady on feet with intermittent difficulty moving left leg.
[2022-04-10 17:12] LABS: UR Morphine/Opiate cutoff 300 Negative (Negative); Ur Creatinine Normal (Normal); Ur Specific Gravity Normal (Normal); Urine Amphetamines Negative (Negative); Urine Barbiturates Negative (Negative); Urine Benzodiazepines Negative (Negative); Urine Cocaine Negative (Negative); Urine MDMA Negative (Negative); Urine Methadone Negative (Negative); Urine Methamphetamines Negative (Negative); Urine Oxycodone Negative (Negative); Urine Phencyclidine Negative (Negative); Urine Tricyclic Antidepressant Negative (Negative); Urine pH Normal (Normal)
[2022-04-10 17:18] LABS: Bacteria Urine Occasional (0-1); Culture Indicated Urine Specimen Cultured; RBC Urine None Seen (0-5/HPF); Squamous Epithelial Cell Urine 0-1 /HPF (0-5/HPF); WBC Urine 1-5/HPF (0-5/HPF)
[2022-04-10 17:30] LABS: COVID19 -Nasal RAPID Negative (Negative)
[2022-04-10] MEDS: dexAMETHasone 4 MG TABLET PO ×2 (18:09→23:06)
[2022-04-11] VITALS (46 sets, daily range): BP systolic 128–197; BP diastolic 73–99; PULSE 58–116; RESP 14–44; O2SAT 91–98
--- NOTE | 2022-04-11 07:34 | PC.NURSE ---
Obtained patient care. Patient sleeping, resp even and unlabored. NSR at rate of 58 on processing manager
[2022-04-11] MEDS: dexAMETHasone 4 MG TABLET PO ×3 (08:37→20:41)
--- NOTE | 2022-04-11 12:58 | CM.SWNOTE ---
DCP/PRODUCTION WEIGHER Note Patient is 81 y/o female who presents to via EMS due to concern for recent GLF, left side weakness and increased confusion. Patient is currently being treated for lung cancer and brain tumors by Dr. Montague from oncology. Patient's PCP is Dr. Bunch, patient has Medicare and [employer] insurance. Head CT shows progression of metastases with surrounding vasogenic edema. Patient is currently waiting for bed at [facility] for palliative radiation. Patient endorses she is DNR and has POLST form filled out and it is in her home in [place]. Patient endorsees that her son has access to patient's will and POLST form. Patient is present with Daughter in law Diandra who requests black POLST form just in case. PRODUCTION WEIGHER explains that a provider will need to sign off on form if patient chooses to complete a new one. PRODUCTION WEIGHER provides blank POLST form. Patient resides at [facility] and endorses she is still receiving services from [facility] for PT. Patient endorses that her living situation at [facility] has been going well. Patient endorses that she wants to proceed with treatment and wants to proceed with waiting from transfer to [facility]. Plan: patient to await transfer to [facility] for radiation treatment, PRODUCTION WEIGHER to f/u with patient if patient continues to board in ED while awaiting transfer. YOSSI MartelSW
--- NOTE | 2022-04-11 14:47 | PC.NURSE ---
Per patient request I call and spoke with daughter in law Diandra. Diandra will return shortly to ER. Patient is pleasantly confused, did not recall Diandra sharing her plan to walk her dog and water the garden. Updated patient.
[2022-04-12] VITALS (49 sets, daily range): BP systolic 179–198; BP diastolic 80–85; PULSE 54–91; RESP 15–34; O2SAT 92–95
[2022-04-12] MEDS: dexAMETHasone 4 MG TABLET PO ×3 (08:44→21:03)
[2022-04-12 14:27] LABS: Add Manual Diff / Slide Review NO; Basophils Absolute Auto 0 /uL (0-100); Basophils Percent Auto 0.1 % (0-2); Eosinophils Absolute Auto 0 /uL (0-450); Hematocrit 32.1 % (36-46); Lymphocytes Absolute Auto 800 /uL (1100-4500); Lymphocytes Percent Auto 8.1 % (25-40); Mean Corpuscular HGB Conc 34.2 % (30-36); Mean Corpuscular Hemoglobin 35.5 PG (26-34); Mean Corpuscular Volume 103.7 fL (80-100); Monocytes Absolute Auto 500 /uL (0-900); Monocytes Percent Auto 4.4 % (3-14); Neutrophils Absolute Auto 8900 /uL (1500-7000); Neutrophils Percent Auto 87.4 % (50-75); Platelet Count 202 X10^3/uL (150-400); Red Blood Cell Count 3.09 X10^6/uL (4.0-5.2); Red Cell Distribution Width 17.7 % (11.6-14.8); White Blood Cell Count 10.2 X10^3/uL (4.5-11.0)
[2022-04-12 14:40] LABS: BUN Creatinine Ratio 28.4 (6-22); Blood Urea Nitrogen 46 mg/dL (7-17); Calcium 10.2 mg/dL (8.4-10.2); Carbon Dioxide 30 mmol/L (22-32); Chloride 105 mmol/L (98-107); Estimated Glomerular Filt Rate 32 mL/min (>60); Glucose 130 mg/dL (80-110); HEMOLYSIS < 15 (0-50); Potassium 3.7 mmol/L (3.4-5.1); Sodium 141 mmol/L (137-145)
[2022-04-13] VITALS (56 sets, daily range): BP systolic 152–200; BP diastolic 70–115; PULSE 46–118; RESP 13–46; O2SAT 90–97
[2022-04-13] MEDS: DEXAMETHASONE 4 MG/ML VIAL IV ×2 (09:25→17:05)
[2022-04-13] MEDS: LOSARTAN 50 MG TABLET 100 MG PO (23:33)
[2022-04-14] VITALS (19 sets, daily range): BP systolic 180–182; BP diastolic 82–84; PULSE 46–59; RESP 14–30; O2SAT 93–97
[2022-04-14] MEDS: DEXAMETHASONE 4 MG/ML VIAL IV ×2 (00:06→09:22)
--- NOTE | 2022-04-14 07:29 | DI.CT.S_ITS ---
PROCEDURE: CT HEAD/BRAIN WO CON INDICATIONS: eval for progression of edema from CT 04/10/22 TECHNIQUE: Noncontrast 4.5 mm thick angled axial sections acquired from the foramen magnum to the vertex, with coronal and sagittal reformats. For radiation dose reduction, the following was used: automated exposure control, adjustment of mA and/or kV according to patient size. COMPARISON: [facility], CT, CT HEAD/BRAIN WO CON, 04/10/2022, 14:21. FINDINGS: Image quality: Excellent. CSF spaces: Basal cisterns are patent. No extra-axial fluid collections. The ventricles are symmetric in size and shape. Brain: Again noted is evidence of extensive deep white matter changes, consistent with a combination vasogenic edema and small vessel ischemic change. Multiple vaguely identifiable subtle metastatic lesions are again noted, some of which contain products of hemorrhage which create a vague hyperdensity. 1 of the metastatic lesions is again noted to extend from the parenchyma into the location of the frontal horn of the left lateral ventricle. There is no acute hemorrhage identified. No interval stroke. There is cerebral volume loss for age, with resultant ventricular and sulcal prominence. There is intracranial internal carotid artery atherosclerosis. Skull and face: Calvarium and visualized facial bones appear intact, without suspicious lesions. Sinuses: Visualized sinuses and mastoids are clear. IMPRESSION: No significant interval change, cerebral and cerebellar metastatic lesions, as previously noted. No significant change in the amount deep white matter changes, consistent with a combination vasogenic edema and small vessel ischemic change. No interval hemorrhage. Dictated by: Casey Leahy M.D. on 04/14/2022 at 7:59 Approved by: Casey Leahy M.D. on 04/14/2022 at 8:09
[2022-04-14] MEDS: LOSARTAN 50 MG TABLET 100 MG PO (09:20)
[2022-04-14] MEDS: hydroCHLOROthiazide 25 MG TABLET PO (09:21)
[2022-04-14] MEDS: ATORVASTATIN 20 MG TABLET 10 MG PO (09:22)
--- NOTE | 2022-04-14 09:57 | PC.NURSE ---
pt medicated with morning meds. minimal breakfast eaten. OOB to commode with 1 assist. tolerated well. AAOx3.
== END 2022-04-14 13:19 | disposition short-term general hospital (02) ==
PROVIDERS: Emergency Medicine; Family Medicine Addiction Medicine; Emergency Provider Emergency Medicine; PCP Family Medicine; Referring Provider Internal Medicine Hematology & Oncology
DX: C79.31 Secondary malignant neoplasm of brain (principal); C34.90 Malignant neoplasm of unspecified part of unspecified bronchus or lung; S09.90XA Unspecified injury of head, initial encounter; W19.XXXA Unspecified fall, initial encounter; Z20.822 Contact with and (suspected) exposure to COVID-19
CPT/HCPCS: 36415; 70450; 71045; 80048; 80053; 80305; 81003; 81015; 82550; 82962; 83735; 84484; 85025; 85610; 85730; 87086; 87635; 93005; 96374; 96375; 96376; 99285; C9803; J1100